=== PATIENT | female | born 1965 | race Caucasian/White ===

== ENCOUNTER 2018-04-18 00:56 | Outpatient (CLI) | payer BC, SELFPAY ==
[2018-04-18 07:54] LABS: Abs Immature Grans 0.02 k/cumm (0.0-0.09); Absolute Basophil Count 0.03 k/cumm (0.0-0.2); Absolute Eosinophil Count 0.28 k/cumm (0.0-0.7); Absolute Lymphocyte Count 1.66 k/cumm (1.2-3.4); Absolute Monocyte Count 0.48 k/cumm (0.11-0.7); Absolute Neutrophil Count 2.98 k/cumm (1.2-6.7); Basophils % 0.6; Eosinophils % 5.1; HCT 38.4 % (36.0-46.0); HGB 12.7 g/dL (12.0-15.5); Immature Grans % 0.4; Lymphocytes % 30.5; Mean Corp. HGB Concentration 33.1 g/dL (32.0-36.0); Mean Corpuscular Hemoglobin 32.2 pg (27.0-33.0); Mean Corpuscular Volume 97.5 fL (80-95); Mean Platelet Volume 9.8 fL (8.0-11.0); Monocytes % 8.8; Neutrophils % 54.6; Platelet Count 312 x1000/uL (130-400); RBC 3.94 m/cumm (4.00-5.20); RBC Distribution Width 12.8 % (11.7-14.6); White Blood Cell Count 5.45 k/cumm (4.4-10.8)
[2018-04-18 08:58] LABS: Anion Gap 9.1 mmol/L (3-11); BUN 17 mg/dL (7-18); CO2 25.9 mmol/L (21.0-32.0); CREATININE 0.69 mg/dL (0.55-1.02); Calcium 8.3 mg/dL (8.5-10.1); Chloride 106 mmol/L (98-107); Glucose 86 mg/dL (70-100); Potassium 4.4 mmol/L (3.5-5.1); Sodium 141 mmol/L (136-145)
== END 2018-04-18 01:16 ==
PROVIDERS: PCP Family Medicine; Visit Provider Obstetrics & Gynecology Gynecology
DX: N93.8 Other specified abnormal uterine and vaginal bleeding (principal); Z01.818 Encounter for other preprocedural examination; Z01.84 Encounter for antibody response examination
CPT/HCPCS: 36415; 80048; 86850; 86900; 86901; 85025

== ENCOUNTER 2018-04-20 06:14 | Day surgery (SDC) | payer BC, SELFPAY ==
[2018-04-20 06:28] VITALS: BP 113/80; PULSE 81; RESP 20; TEMP 37.3; O2SAT 97
[2018-04-20] MEDS: Lactated Ringers 1,000 ML 125 ML IV ×2 (07:05→08:43)
--- NOTE | 2018-04-20 08:15 | ENDOMET_PTH ---
PATIENT: Eloina Nieto LOC: [facility] U#:[id number] AGE/SX: 52/F ROOM: RE04/20/[address]: Carly Dasilva : 1965 BED: DIS: 04/20/2018 SPEC #: [id number] RECD: 04/20/18 12:35 STATUS: JARVIS REQ #: [id number] PEPE: 04/20/18 08:[address]: Carly Dasilva DEPT: Surgical Specimen RECD BY: Brooke Wheeler ENTERED: 04/20/18 12:36 SP TYPE: Endomet OTHR DR: Mera Howell Tissues: 1 - ENDOMETRIUM BX/ROSE Procedures: GROSS AND MICRO LEVEL 4 Comments: [id number]
[2018-04-20] MEDS: fentaNYL 100 MCG/2 ML VIAL 50 MCG IVP ×2 (09:17→10:18)
[2018-04-20 09:25] VITALS: BP 133/87; PULSE 87; RESP 22; TEMP 36.9; O2SAT 92
[2018-04-20] MEDS: oxyCODONE 5 mg/Acetaminophen 325 mg TAB PO (09:45)
--- NOTE | 2018-04-20 11:18 | ROE_ITS ---
REPORT OF OPERATIVE PROCEDURE DATE OF PROCEDURE April 20, 2018 PREOPERATIVE DIAGNOSIS Abnormal uterine bleeding. POSTOPERATIVE DIAGNOSIS Abnormal uterine bleeding. PROCEDURES Dilation and curettage. Hydrothermal endometrial ablation. SURGEON Carly Dasilva M.D. MACHINE I COREMAKER None. ANESTHESIA Monitored Anesthesia Care, by Sunita Lockett, DANNY FLUIDS 1100 cc of crystalloid. URINE OUTPUT The patient voided prior to the OR. ESTIMATED BLOOD LOSS None. DRAINS None. COMPLICATIONS None. SPECIMENS Endometrial curettings to pathology. DISPOSITION Awaken transported to the Recovery Area in stable condition. INDICATIONS A 52-year-old G1, P0 female with approximately one year of prolonged painful menses, not responsive to medical management. The patient was counseled regarding treatment options and the decision was made to proceed with an endometrial ablation. Her previous endometrial biopsy performed in September of 2017 , showed strips of inactive endometrium. FINDINGS AT THE TIME OF SURGERY The uterus sounded to 8 centimeters and the endometrial lining was thickened and a posterior myometrial fibroid was appreciated on hysteroscopic examination along the posterior uterine wall. It projected 2 to 3 mm into the endometrial cavity. Both tubal ostia were visualized. There was no evidence of anterior uterine fibroids or other distortions of the uterine cavity. DESCRIPTION OF PROCEDURE The patient was taken to the Operating Room, she was placed in the dorsal supine position and Monitored Anesthesia Care was administered without difficulty. She was then placed in the dorsal lithotomy position in [facility]. She was prepped and draped in the usual sterile fashion. A bivalved speculum was placed in the vagina. The paracervical block was performed using 2 cc of ropivacaine at the 4 and 8 o'clock vaginal cervical interface respectively. The anterior lip of the cervix was grasped with a single-tooth tenaculum. The uterus was sounded, sequentially dilated to a maximum of 16 Ashley and a small banjo curette was inserted into the uterus in all 4 quadrants of the uterine cavity were sequentially curetted with a moderate amount of tissue returned. The banjo curette was then removed and the HTA hysteroscope with uterine occlusion device was inserted under direct visualization into the uterine cavity. Cavity assessment was performed and the procedure was initiated with normal saline heated to a temperature of 91 degrees centigrade and circulated throughout the uterine cavity for 10 minutes. Care was taken to observe that there was no contact with the instillation device and the vaginal sánchez, and no leakage of the heated saline into the vagina. After the successful completion of the procedure, cooling of the circulating fluid was performed. The hysteroscope was then used to inspect the uterine cavity with excellent treatment effect noted. The hysteroscope was removed. The instruments were removed from the patient's vagina. The tenaculum site was noted to be hemostatic. She was placed in the dorsal supine position, awakened and transported to the Recovery Area in stable condition. All sponge, lap and needle counts were correct x2.
== END 2018-04-20 11:25 | disposition home or self-care (01) ==
PROVIDERS: PCP Family Medicine; Visit Provider Obstetrics & Gynecology Gynecology
PROC: (CPT 58563; principal; 2018-04-20 07:30)
PROC: (CPT 58353; 2018-04-20 07:30)
DX: N93.8 Other specified abnormal uterine and vaginal bleeding (principal); N84.0 Polyp of corpus uteri
CPT/HCPCS: 58563; 81025; 88305; J1885; J2250; J2405; J3010

== ENCOUNTER 2018-12-06 15:51 | Outpatient (REF) | payer BC, SELFPAY ==
[2018-12-06 21:34] LABS: ALT 30 U/L (12-78); AST 21 U/L (15-37); TSH 0.14 uIU/mL (0.358-3.74)
[2018-12-07 09:00] LABS: FREE T4 1.22 ng/dL (0.76-1.46)
== END 2018-12-06 16:11 ==
LOC: NCHCN 15:51
PROVIDERS: PCP Nurse Practitioner Family; Visit Provider Nurse Practitioner Family
DX: Z00.00 Encounter for general adult medical examination without abnormal findings (principal); E03.9 Hypothyroidism, unspecified
CPT/HCPCS: 84439; 84443; 84450; 84460

== ENCOUNTER 2018-12-13 01:41 | Outpatient (CLI) | payer BC, SELFPAY ==
--- NOTE | 2018-12-13 12:01 | DI.MAMMO_ITS ---
SYMPTOMS/DIAGNOSIS: SCREENING, Z12.31 MAMMOGRAM: Mammograms were interpreted according to the usual protocol including computer analysis with CAD system, tomosynthesis and C view imaging. The breasts are of moderate density with fairly symmetrical distribution of fibroglandular tissue. No dominant mass or clumped microcalcification is identified in either breast. Current examination is compared with previous examinations including September 2017 and there has been no gross interval change in appearance in comparison with the previous studies. CONCLUSION: No specific evidence of malignancy at this time. Routine screening examinations are suggested at yearly intervals in this age group according to the ACS/ACR guidelines. Category 1, breast density category B. MQSA ASSESSMENT OF FINDINGS: Negative. Category 1. Patient will receive a letter notifying them of these results. BI-RADS category B. There are scattered areas of fibroglandular density.
== END 2018-12-13 02:01 ==
PROVIDERS: PCP Nurse Practitioner Family; Visit Provider Obstetrics & Gynecology Gynecology
DX: Z12.31 Encounter for screening mammogram for malignant neoplasm of breast (principal)
CPT/HCPCS: 77063; 77067

== ENCOUNTER 2019-04-11 15:30 | Outpatient (CLI) | payer BC, SELFPAY ==
[2019-04-11 16:55] LABS: TSH (W/Ref FT4) 0.04 uIU/mL (0.36-3.74)
[2019-04-11 17:14] LABS: FREE T4 1.33 ng/dL (0.76-1.46)
== END 2019-04-11 15:50 ==
PROVIDERS: PCP Nurse Practitioner Family; Visit Provider Nurse Practitioner Family
DX: E03.9 Hypothyroidism, unspecified (principal)
CPT/HCPCS: 36415; 84439; 84443

== ENCOUNTER 2019-05-15 06:30 | Day surgery (SDC) | payer BC, SELFPAY ==
[2019-05-15] VITALS (7 sets, daily range): BP systolic 104–118; BP diastolic 62–86; PULSE 52–65; RESP 12–17; TEMP 36.1–36.6; O2SAT 96–100
[2019-05-15] MEDS: Lactated Ringers 1,000 ML 80 ML IV (07:45)
[2019-05-15] MEDS: fentaNYL 100 MCG/2 ML VIAL IVP ×3 (08:40→09:00)
--- NOTE | 2019-05-15 08:51 | W.PM.DSUDISC ---
Discharge Plan Disposition Patient Disposition: HOME Condition: Good Discharge Details Reason For Visit: Release of first dorsal extensor compartment L wri Attending Provider: Arslan Alcantar Primary Care Provider: Janice Larson Home Meds and New Rx's Prescriptions: New hydrocodone-acetaminophen 5-325 mg tablet 1 tab PO Q6H PRN (Reason: pain) Qty: 7 RF: 0 Continued levothyroxine 125 MCG tablet 88 mcg PO DAILY RF: 0 gabapentin 300 MG capsule 1 tab PO .QAM 90 Days RF: 0 hydroxyzine HCl 10 mg Tablet 50 mg PO QHS RF: 0 gabapentin 300 mg Capsule 600 mg PO HS RF: 0 Discharge Instructions Additional Instructions: Elevate L hand above heart level as much as possible overnite tonite. Wiggle fingers L hand 10 times/hour, when awake, to prevent swelling. Keep splint and dressings dry and intact for next 5 days. After 5 days, remove splint AND dressings and begin to move L wrist and thumb. May shower and get incision wet after you remove dressings. LEAVE INCISION UNCOVERED when it is dry and sealed. Use L hand as much as your discomfort allows. Follow up with in 2 weeks. Take ibuprofen 600 mg every 6 hours as needed for mild pain. Take hydrocodone, if needed, for breakthru pain. Referrals: Arslan Alcantar MD [ [facility]FF PHYSICIAN] - (f/u in 2 weeks.) Equipment/Supplies: Splint Activity:: Activity as Tolerated Diet:: As Tolerated Discharge Orders Discharge Orders: Discharge Order (Routine); Ordered 05/15/19 Ordered By: Arslan Alcantar DS: Diagnosis Discharge Diagnosis (1) Radial styloid tenosynovitis [de quervain]: Status: Acute
--- NOTE | 2019-05-16 17:20 | ROE_ITS ---
DATE OF PROCEDURE: May 15, 2019 PREOPERATIVE DIAGNOSIS: De Quervain's tendonitis of the first dorsal extensor compartment, left wris t. POSTOPERATIVE DIAGNOSIS: Same. PROCEDURE: Tendon sheath incision at radial styloid for De Quervain's tendonitis. Application of s hort-arm thumb spica splint. ANESTHESIA: General. SURGEON: Arslan Alcantar M.D. INDICATIONS: This is a 53-year-old white female with persistent tendonitis of the first dorsal exten sor compartment of the left wrist. This has not responded to conservative treatment. Release of the first dorsal extensor compartment was recommended to alleviate her pain on a permanent basis. The r isks and complications of the procedure were explained to the patient in detail preoperatively. PROCEDURE: The patient was taken to the operating room on 05/15/19. She was placed supine on the ope rating table and a general anesthetic was administered. A proximal tourniquet was applied to the lef t upper extremity and then the left hand, wrist and forearm were prepped and draped free in the usual sterile fashion. The left upper extremity was exsanguinated by elevation for two minutes and then t he tourniquet was inflated to 300 mmHg. A longitudinal incision was made directly over the first dorsal extensor compartment beginning at the distal tip of the radial styloid and extending proximally about three inches. The incision was palmer ied down to the subcu. Blunt-tipped Littler scissors were then used to mobilize the terminal branch of the superficial radial nerve away from the first dorsal extensor compartment. The first dorsal ex tensor compartment was then incised. There was abundant fluid in the first dorsal extensor compartme nt released by incising the sheath. There was noted to be two compartments within the first dorsal e xtensor compartment. One had a very large tendon, probably the abductor pollicis longus tendon slip , and the other compartment had two slips that were smaller, probably extensor pollicis brevis. The compartment was completely excised so that all three tendon slips rested within one compartment. The wound was irrigated with saline solution. The wound margins were infiltrated with 0.5% Marcaine wit h an epinephrine solution. The skin edges were approximated with interrupted #4-0 N[address]ures[address] St erile dressings were applied followed by a radial thumb spica splint held on with a 3-inch MISTY bandag e. The tourniquet was released; there was no breakthrough bleeding to the dressings. The patient to lerated the procedure well and was discharged to the recovery room after reversal of general anesthes ia. The patient was discharged home from the Day Surgery Unit when fully recovered from her general anest hesia. She was given instructions to elevate her left hand above heart level as much as possible ashanti ramírez. She is to keep her dressings and splint dry and intact for five days. After five da ys she is to remove her dressings and splint and start to move her left wrist and thumb. She may suzi wer and get her incision wet after five days. She is to leave the wound uncovered when it is dry and sealed. She may use her left hand as much as discomfort allows. She will take ibuprofen 600 mg p.o . t.i.d. for the next ten days for inflammation and pain. She was given a prescription for breakthro ugh pain of Hydrocodone with APAP 5/325, one tablet every six hours, if needed. She will follow-up kandi moy in two weeks.
== END 2019-05-15 10:15 | disposition home or self-care (01) ==
LOC: SUR 11:02
PROVIDERS: PCP Nurse Practitioner Family; Visit Provider Orthopaedic Surgery
PROC: (CPT 25000; principal; 2019-05-15 07:30)
DX: M65.4 Radial styloid tenosynovitis [de Quervain] (principal)
CPT/HCPCS: 25000; J1885; J3010

== ENCOUNTER 2019-06-13 15:49 | Outpatient (CLI) | payer BC, SELFPAY ==
[2019-06-13 17:21] LABS: TSH (W/Ref FT4) 0.36 uIU/mL (0.36-3.74)
== END 2019-06-13 16:09 ==
PROVIDERS: PCP Nurse Practitioner Family; Visit Provider Nurse Practitioner Family
DX: E03.9 Hypothyroidism, unspecified (principal)
CPT/HCPCS: 36415; 84443

== ENCOUNTER 2020-03-01 09:25 | Outpatient (REF) | payer BC, SELFPAY ==
[2020-03-01 23:25] LABS: ALT 24 U/L (14-59); AST 18 U/L (15-37); Calculated LDL 148 mg/dL (<100); Cholesterol 260 mg/dL (<200); Glucose 92 mg/dL (74-106); HDL Cholesterol 102 mg/dL (40-60); Triglyceride 53 mg/dL (<150)
== END 2020-03-01 09:45 ==
LOC: NCHCN 09:25
PROVIDERS: PCP Nurse Practitioner Family; Visit Provider Nurse Practitioner Family
DX: Z00.00 Encounter for general adult medical examination without abnormal findings (principal); Z13.220 Encounter for screening for lipoid disorders; Z13.1 Encounter for screening for diabetes mellitus
CPT/HCPCS: 80061; 82947; 84450; 84460

== ENCOUNTER 2020-03-20 00:58 | Outpatient (CLI) | payer BC, SELFPAY ==
--- NOTE | 2020-03-20 07:52 | DI.MAMMO_ITS ---
EXAM: MAMMO SCREENING CLINICAL HISTORY: SCREENING,Z12.31 2010 through 2019 FINDINGS: The breasts are composed of scattered fibroglandular densities, Breast Density category B. No suspicious masses or suspicious microcalcifications are seen. No skin thickening or abnormal axillary lymph nodes are seen. There has been no significant change from prior exams. IMPRESSION: BI-RADS Category 1, Negative mammogram Yearly screening mammography is recommended. Breast Density - Category B, scattered fibroglandular densities. A negative radiographic report should not delay biopsy if a dominant or clinically suspicious mass is present. Up to ten percent of cancers are not identified on mammography. A negative report may reinforce clinical impression. Adenosis and dense breasts may obscure an underlying neoplasm. False positive reports average 6 to 10%. Patient will receive a letter notifying them of these results.
== END 2020-03-20 01:18 ==
PROVIDERS: PCP Nurse Practitioner Family; Visit Provider Nurse Practitioner Family
DX: Z12.31 Encounter for screening mammogram for malignant neoplasm of breast (principal); R92.2 Inconclusive mammogram
CPT/HCPCS: 77063; 77067

== ENCOUNTER 2020-09-24 15:30 | Outpatient (REF) | payer BC, SELFPAY ==
--- NOTE | 2020-09-24 14:45 | PAPFT_PTH ---
PATIENT: Eloina Nieto LOC: [facility] U#:[id number] AGE/SX: 54/F ROOM: RE09/24/[address]: FIDEL Brian : 1965 BED: DIS: 09/24/2020 SPEC #: [id number] RECD: 09/24/20 17:49 STATUS: JARVIS REQ #: [id number] PEPE: 09/24/20 14:[address]: Gloria Sears DEPT: [facility] Cytology RECD BY: Brooke Wheeler ENTERED: 09/24/20 17:49 SP TYPE: PAPFT OTHR DR: Janice Larson Tissues: 1 - CX/ENDOCX FOR PAP SMEARS Procedures: PAP THIN PREP/UVM Screening HPV DNA PROBE Comments: [id number]
== END 2020-09-24 15:31 | disposition home or self-care (01) ==
LOC: LBN 15:30
PROVIDERS: PCP Nurse Practitioner Family; Visit Provider Nurse Practitioner Family
DX: Z12.4 Encounter for screening for malignant neoplasm of cervix (principal); Z11.51 Encounter for screening for human papillomavirus (HPV)
CPT/HCPCS: 88142; 87624

== ENCOUNTER 2020-10-18 16:41 | Outpatient (REF) | payer BC, SELFPAY ==
[2020-10-18 20:59] LABS: TSH (W/Ref FT4) 0.55 uIU/mL (0.36-3.74)
== END 2020-10-18 16:42 | disposition home or self-care (01) ==
LOC: NCHCN 16:41
PROVIDERS: PCP Nurse Practitioner Family; Visit Provider Nurse Practitioner Family
DX: E03.9 Hypothyroidism, unspecified (principal)
CPT/HCPCS: 84443

== ENCOUNTER 2021-04-07 01:50 | Outpatient (CLI) | payer BC, SELFPAY ==
--- NOTE | 2021-04-07 08:23 | DI.MAMMO_ITS ---
Exam(s) MAMMO SCREENING EXAM: MAMMO SCREENING CLINICAL HISTORY: screening,Z12.39. TECHNIQUE: Bilateral full field digital CC and MLO mammographic images were obtained with 3D tomosyn thesis and utilizing computer aided detection (CAD). COMPARISON: Prior mammograms dating back to 2011, the most recent being March 2020. FINDINGS: There has been no significant change in the appearance and distribution of the fibroglandular tissue. There are no new spiculated masses nor malignant appearing microcalcification groups. There is no significant architectural distortion nor skin thickening-retraction. IMPRESSION: No radiographic evidence of malignancy. BI-RADS Category 1 - Negative Breast Density - Category B - Scattered areas of fibroglandular density Breast density Category C or D implies that the patient has dense breast tissue. Dense breast tissue can make it harder to find cancer on a mammogram. Dense breast tissue is also associated with an incr eased risk of breast cancer. This information about the result of the mammogram report was provided to the patient to raise their awareness. Use this report when you speak with the patient about their risks for breast cancer, which includes their family history. At that time, you may recommend additional screening tests (Ultrasoun d or MRI) as these tests may add significant information. A negative radiographic report should not delay biopsy if a dominant or clinically suspicious mass is present. Up to ten percent of cancers are not identified on mammography. A negative report may reinforce clinical impression. Adenosis and dense breasts may obscure an underlying neoplasm. False positive reports average 6 to 10%. Patient will receive a letter notifying them of these results.
== END 2021-04-07 02:10 ==
PROVIDERS: PCP Nurse Practitioner Family; Visit Provider Nurse Practitioner Family
DX: Z12.31 Encounter for screening mammogram for malignant neoplasm of breast (principal)
CPT/HCPCS: 77063; 77067

== ENCOUNTER 2021-10-15 13:23 | Outpatient (REF) | payer BC, SELFPAY ==
[2021-10-15 15:47] LABS: HCT 39.1 % (36.0-46.0); HGB 12.8 g/dL (11.2-15.7); MCH 31.1 pg (27.0-33.0); MCHC 32.7 % (32.0-36.0); MCV 95.1 fL (80-95); MPV 10.2 fL (8.0-11.0); Platelet Count 246 10^3/uL (130-400); RBC 4.11 10^6/uL (3.93-5.22); RDW 11.8 % (11.7-14.6); WBC 4.47 10^3/uL (4.4-10.8)
[2021-10-15 16:29] LABS: ALT 18 U/L (14-59); AST 18 U/L (15-37); Albumin 4.1 g/dL (3.4-5.0); Alkaline Phosphatase 65 U/L (46-116); Anion Gap 7.9 mmol/L (3-11); BUN 19 mg/dL (7-18); Bilirubin, Total 0.5 mg/dL (0.2-1.0); CO2 29.1 mmol/L (21.0-32.0); CREATININE 0.6 mg/dL (0.55-1.02); Calcium 8.9 mg/dL (8.5-10.1); Calculated LDL 127 mg/dL (<100); Chloride 103 mmol/L (98-107); Cholesterol 247 mg/dL (<200); Glucose 78 mg/dL (74-106); HDL Cholesterol 112 mg/dL (40-60); Potassium 4.8 mmol/L (3.5-5.1); Sodium 140 mmol/L (136-145); TSH (W/Ref FT4) 4.62 uIU/mL (0.36-3.74); Total Protein 7.1 g/dL (6.4-8.2); Triglyceride 43 mg/dL (<150)
[2021-10-15 16:46] LABS: FREE T4 1.01 ng/dL (0.76-1.46)
== END 2021-10-15 13:24 | disposition home or self-care (01) ==
LOC: NCHCN 13:23
PROVIDERS: PCP Nurse Practitioner Family; Visit Provider Nurse Practitioner Family
DX: E03.9 Hypothyroidism, unspecified (principal); F41.8 Other specified anxiety disorders; E78.5 Hyperlipidemia, unspecified
CPT/HCPCS: 80053; 80061; 85027; 84439; 84443

== ENCOUNTER 2022-04-02 17:22 | Outpatient (REF) | payer BC, SELFPAY ==
[2022-04-02 20:08] LABS: TSH (W/Ref FT4) 7.48 uIU/mL (0.36-3.74)
[2022-04-02 20:38] LABS: FREE T4 1.04 ng/dL (0.76-1.46)
== END 2022-04-02 17:23 | disposition home or self-care (01) ==
LOC: NCHCN 17:22
PROVIDERS: PCP Nurse Practitioner Family; Visit Provider Nurse Practitioner Family
DX: E03.9 Hypothyroidism, unspecified (principal)
CPT/HCPCS: 84439; 84443

== ENCOUNTER → 2022-04-08 02:02 | Outpatient (CLI) | payer BC, SELFPAY ==
--- NOTE | 2022-04-08 08:45 | DI.MAMMO_ITS ---
Exam(s) MAMMO SCREENING EXAM: MAMMO SCREENING CLINICAL HISTORY: screening TECHNIQUE: Mammograms were interpreted according to the usual protocol including computer analysis w [employer] CAD system, tomosynthesis and C-view imaging. COMPARISON: FINDINGS: The breasts of moderate radiodensity with fairly symmetrical distribution of fibroglandular tissue.. No dominant mass or clumped microcalcification is identified in either breast. The current examinat ion is compared with previous examinations including March 2021 and there has been no gross inter rony change in appearance in comparison with the prior studies. IMPRESSION: No specific evidence of malignancy at this time. Routine screening examinations are suggested at yea rly intervals in this age group according to the ACS ACR guidelines. BI-RADS Category 1 - Negative Breast Density - Category B - Scattered areas of fibroglandular density
== END ==
PROVIDERS: PCP Nurse Practitioner Family; Visit Provider Nurse Practitioner Family
DX: Z12.31 Encounter for screening mammogram for malignant neoplasm of breast (principal)
CPT/HCPCS: 77063; 77067

== ENCOUNTER 2022-04-22 16:30 | Emergency (ER) | payer OTHER, SELFPAY ==
--- NOTE | 2022-04-22 16:30 | DI.RAD_ITS ---
Exam(s) XR ANKLE LT COMPLETE EXAM: XR ANKLE LT COMPLETE CLINICAL HISTORY: pain s/p fall TECHNIQUE: 2D digital imaging was performed of the left ankle. Three images were obtained. AP, lat eral and oblique views were obtained. COMPARISON: No exams were available for comparison FINDINGS: BONES: No acute fracture is present. No bony destructive lesion is seen. JOINTS:The ankle mortise is normally aligned. SOFT TISSUE: Normal. IMPRESSION: Unremarkable radiographs of the left ankle. DATA REPOSITORY: RADIATION DOSE DELIVERED:
--- NOTE | 2022-04-22 16:30 | DI.RAD_ITS ---
Exam(s) XR TIB/FIB LT EXAM: XR TIB/FIB LT CLINICAL HISTORY: pain s/p fall. TECHNIQUE: 2D digital imaging was performed of the left tibia and fibula. Images were obtained. A P and lateral views were obtained. COMPARISON: No exams were available for comparison FINDINGS: BONES: No acute fracture is present. No bony destructive lesion is seen. Visualized portion of knee a nd ankle joints are unremarkable. SOFT TISSUE: Normal. IMPRESSION: Unremarkable radiographs of the left tibia and fibula. DATA REPOSITORY: RADIATION DOSE DELIVERED:
[2022-04-22 16:31] VITALS: BP 131/78; PULSE 67; RESP 16; TEMP 37.1; O2SAT 99
--- NOTE | 2022-04-22 16:43 | W.ED.GENAD ---
Discharge Plan Disposition Patient Disposition: HOME Condition: Stable Discharge Details Clinical Impression: Sprain of ankle, left Primary Care Provider: Janice Larson ED Provider: Andrade Tran Home Meds and New Rx's Prescriptions: Continued trazodone 50 mg tablet 150 mg PO QHS Label Comments: 02/09/22- pt unsure of dose levothyroxine 125 MCG tablet 112 mcg PO DAILY Rx Instructions: Pt thinks she is on this dose Discharge Instructions Instructions: Ankle Sprain (ED) Additional Instructions: if pain continues in one week follow up with your primary care provider if you feel more ill, have severe worsening pain or new pain such as abdominal pain return to the emergency department Medical Decision Making 56 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 Denies head trauma or other injuries. She has no head pain, neck pain, back pain, chest or abdomen pain. She localizes the pain to the medial and lateral malleolus and has some mild swelling over the lateral malleolus. She has intact sensation and pulses in the foot, no tenderness over the metatarsals, does have full plantar and dorsiflexion at the ankle. No tenderness at the knee, has some mild anterior mid tibia tenderness without deformity. No pain in the hip with full rom. Suspect sprain of the ankle, will obtain xrays to evaluate for fracture. No findings to suggest achilles tendon injury or rupture. xrays unremarkable, she remains stable. Suspect ankle sprain, will place in short walking boot. Advised to f/u with pcp if pain continues in a week return precautions given Differential Diagnosis Differential Diagnosis: sprain, strain, fracture, contusion Imaging Data Radiologic Study: Attestation: I personally reviewed and interpreted this imaging study as follows: Imaging: X-Ray My impression: no acute fracture tib/fib xray Radiologic Study #2: Attestation: I personally reviewed and interpreted this imaging study as follows: Imaging: X-Ray My impression: no acute fracture ankle xray HPI General Date/Time Provider Initiated Documentation: 04/22/22 16:30. Limitations to Documentation: no limitations. Information obtained by: patient. History of Present Illness 56 year old F presents to the emergency department with the chief complaint of left ankle pain, described as moderate, Quality is described as aching, and is localized to the left. Patient reports no radiation. Patient started experiencing this hour(s) (1) and it has been constant. Rest improves symptom(s), Movement worsens symptoms . Patient notes no other symptoms.. Patient did receive the following treatments prior to arrival, none Related Data Home Medications Medication Instructions Recorded Confirmed levothyroxine 125 mcg tablet 112 mcg PO DAILY 02/14/13 04/22/22 trazodone 50 mg tablet 150 mg PO QHS 02/09/22 04/22/22 Allergies Allergy/AdvReac Type Severity Reaction Status Date / Time No Known Drug Allergies Allergy Verified 04/22/22 16:37 General Stated Complaint: Orthopedic PAOLA: 4 Review of Systems All systems reviewed & are unremarkable except as noted in HPI and below Constitutional Constitutional: Denies chills, Denies fever(s) and Denies weakness Cardiovascular Cardiovascular: Denies chest pain and Denies dyspnea Respiratory Respiratory: Denies dyspnea Gastrointestinal Gastrointestinal: Denies abdominal pain, Denies nausea and Denies vomiting Integumentary/Breasts Skin/Breast: Denies rash Neurologic Neurologic: Denies weakness [facility] All Active Problems (Updated 04/22/22 @ 17:21 by Andrade Tran MD) Sprain of ankle, left (Acute) Contact dermatitis and eczema due to plant (Acute) Radial styloid tenosynovitis [de quervain] (Acute 05/15/19) Uterine fibroid (Chronic) post uterine wall - Hypothyroid (Chronic) Hypothyroidism (Acute 02/14/13) Family History Mother Rheumatoid arthritis Heart disease Lung cancer Grandfather Colon cancer maternal Diabetes Grandmother Renal cancer maternal Father Glioblastoma Social History Smoking/Tobacco Use Status: Never Smoking risk assessment performed?: Yes Alcohol Intake: current Alcohol Intake frequency: a few times a month Alcohol type: beer and wine Details: monthly or less Drug use: Occasionally Substance use type: marijuana Details: edibles for insomnia Household members: significant other Number of Children: 0 current occupation: [employer] Sexually active: Yes Do you think of yourself as: straight/heterosexual Current gender identity: female Duration: 15-30 minutes/day Frequency: 5-6 times per week Seatbelt use: always Do you feel safe at home: Yes Do you feel safe in your relationship?: Yes History History 1 Para 0 Hx # Term Pregnancies 0 Multiple births Hx # Pregnancies Ectopic pregnancies AB induced Hx Number of Living Children AB spontaneous 1 Exam Const General: no acute distress Orientation: alert HENMT Head: normal to inspection Ears: external ears normal General nose exam: external nose normal Mouth: moist mucous membranes Eyes General: appearance normal, both eyes and all related structures Neck Neck: normal visual inspection Resp Effort & Inspection: normal respiratory effort and able to speak in complete sentences Cardio Rate: regular rate Skin General skin exam: no rashes or lesions noted Neuro General: patient alert and patient oriented x3 Extrem General: full ROM and capillary refill normal Psych Mental Status: mental status grossly normal Course Vital Signs Vital signs: Vital Signs Temperature 37.1 C 04/22/22 16:31 Pulse 67 04/22/22 16:31 Respiratory Rate 16 04/22/22 16:31 Blood Pressure 131/78 04/22/22 16:31 Pulse Oximetry 99 04/22/22 16:31 Temperature 37.1 C 04/22/22 16:31 Temperature Source Skin 04/22/22 16:31 Pulse 67 04/22/22 16:31 Respiratory Rate 16 04/22/22 16:31 Respiratory Effort 04/22/22 16:38 Blood Pressure 131/78 04/22/22 16:31 Blood Pressure Position Sitting 04/22/22 16:31 Pulse Oximetry 99 04/22/22 16:31 Oxygen Delivery Method Room Air 04/22/22 16:31 Oxygen Flow Rate 0 04/22/22 16:31 Pain Level 4 04/22/22 16:31 Comment 04/22/22 16:31 PAWSS Have you Been Recently Intoxicated or Drunk Within the Last 30 days?: No Have you Ever Experienced Previous Episodes of Alcohol Withdrawal?: No Have you ever Experienced Withdrawal Seizures?: No Have you ever Experienced Delirium Tremens(DT)s?: No Have you ever undergone Alcohol Rehabilitation Treatment (i.e, inpt ot outpatient treatment programs)?: No Have you ever Experienced Blackouts?: No Have you ever Combined Alcohol with other Downers within the last 90 days?: No Have you ever Combined Alcohol with any other Substance of Abuse during the last 90 days?: No Positive Blood Alcohol level on Presentation? [PCS.BAL]: No Evidence of Increased Autonomic Activity (i.e. HR>120, tremor, sweating, agitation, nausea)?: No Result: 0
[2022-04-22] MEDS: Ibuprofen 600 MG TAB PO (17:16)
--- NOTE | 2022-04-22 17:42 | DI.VRAD_ITS ---
PROCEDURE INFORMATION: Exam: XR Left Ankle Exam date and time: 04/22/2022 5:08 PM Age: 56 years old Clinical indication: Injury or trauma; Fall; Blunt trauma; Ankle; Left TECHNIQUE: Imaging protocol: Radiologic exam of the Left ankle. Views: 3 or more views. COMPARISON: CR XR TIB/FIB LT 04/22/2022 5:05 PM FINDINGS: Bones/joints: Normal. Soft tissues: Normal. IMPRESSION: No acute findings. Dictated and Authenticated by: Magno Shabazz MD. Ordering:MARILYN Zafar MD
--- NOTE | 2022-04-22 17:43 | DI.VRAD_ITS ---
PROCEDURE INFORMATION: Exam: XR Left Tibia and Fibula Exam date and time: 04/22/2022 5:05 PM Age: 56 years old Clinical indication: Injury or trauma; Fall; Blunt trauma; Lower leg; Left TECHNIQUE: Imaging protocol: Radiologic exam of the Left tibia and fibula. Views: 2 views. COMPARISON: No relevant prior studies available. FINDINGS: Bones/joints: Normal. Soft tissues: Normal. IMPRESSION: No acute findings. Dictated and Authenticated by: Magno Shabazz MD. Ordering:MARILYN Zafar MD
== END 2022-04-22 18:16 | disposition home or self-care (01) ==
PROVIDERS: Emergency Provider Emergency Medicine; PCP Nurse Practitioner Family
DX: S93.402A Sprain of unspecified ligament of left ankle, initial encounter (principal); X50.9XXA Other and unspecified overexertion or strenuous movements or postures, initial encounter; Y93.39 Activity, other involving climbing, rappelling and jumping off
CPT/HCPCS: 99284; 73590; 73610; 99282

== ENCOUNTER 2022-06-02 18:28 | Outpatient (REF) | payer BC, SELFPAY ==
[2022-06-02 15:35] LABS: TSH (W/Ref FT4) 0.25 uIU/mL (0.36-3.74)
[2022-06-02 16:32] LABS: FREE T4 1.52 ng/dL (0.76-1.46)
== END 2022-06-02 18:29 | disposition home or self-care (01) ==
LOC: NCHCN 18:28
PROVIDERS: PCP Nurse Practitioner Family; Visit Provider Nurse Practitioner Family
DX: E03.9 Hypothyroidism, unspecified (principal)
CPT/HCPCS: 84439; 84443

== ENCOUNTER → 2022-06-09 13:00 | Outpatient (CLI) | payer BC, SELFPAY ==
--- NOTE | 2022-06-09 | DI.RAD_ITS ---
Exam(s) XR SHOULDER LT COMPLETE 2+V EXAM: XR SHOULDER LT COMPLETE 2+V CLINICAL HISTORY: LT SHOULDER PAIN, M25.512. TECHNIQUE: 2D digital imaging was performed of the left shoulder. Five images were obtained. AP, G rashey, Y-view and axillary views were obtained. COMPARISON: CR LEFT SHOULDER COMPLETE from 11/23/2013 FINDINGS: BONES: No acute fracture is present. No bony destructive lesion is seen. JOINTS: No dislocation present. There are mild degenerative changes of the acromioclavicular joint. SOFT TISSUE: Soft tissue calcifications are seen adjacent to the greater tuberosity suggestive of hira cific tendinitis. 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 Calcific tendinitis. DATA REPOSITORY: RADIATION DOSE DELIVERED:
== END ==
PROVIDERS: PCP Nurse Practitioner Family; Visit Provider Family Medicine
DX: M19.011 Primary osteoarthritis, right shoulder (principal)
CPT/HCPCS: 73030

== ENCOUNTER 2022-06-09 13:32 | Outpatient (REF) | payer BC, SELFPAY ==
[2022-06-09 14:48] LABS: ESR 1 mm/hr (0-30)
[2022-06-10 09:50] LABS: Lyme Ab w Rflx to Lyme Confirm Negative (Negative)
[2022-06-11 18:18] LABS: Anaplasma phagocytophilum Negative (Negative); B. miyamotoi PCR Negative (Negative); Babesia divergens/MO-1 Negative (Negative); Babesia duncani Negative (Negative); Babesia microti Negative (Negative); Ehrlichia chaffeensis Negative (Negative); Ehrlichia ewingii/canis Negative (Negative); Ehrlichia muris eauclairensis Negative (Negative)
== END 2022-06-09 13:33 | disposition home or self-care (01) ==
LOC: NCHCN 13:32
PROVIDERS: PCP Nurse Practitioner Family; Visit Provider Family Medicine
DX: M25.512 Pain in left shoulder (principal); R52 Pain, unspecified
CPT/HCPCS: 85652; 87798; 86618

== ENCOUNTER 2022-11-04 13:17 | Outpatient (REF) | payer BC, SELFPAY ==
[2022-11-04 21:20] LABS: HCT 36.7 % (36.0-46.0); MCH 30.6 pg (27.0-33.0); MCHC 32.7 % (32.0-36.0); MCV 94 fL (80-95); MPV 10.2 fL (8.0-11.0); Platelet Count 263 10^3/uL (130-400); RBC 3.92 10^6/uL (3.93-5.22); RDW 13.2 % (11.7-14.6); RDW-SD 45.3 fL
[2022-11-04 21:59] LABS: ALT 20 U/L (14-59); AST 18 U/L (15-37); Alkaline Phosphatase 72 U/L (46-116); Anion Gap 6.8 mmol/L (3-11); BUN 13 mg/dL (7-18); Bilirubin, Total 0.4 mg/dL (0.2-1.0); CO2 29.2 mmol/L (21.0-32.0); CREATININE 0.7 mg/dL (0.55-1.02); Calcium 8.9 mg/dL (8.5-10.1); Calculated LDL 117 mg/dL (<100); Chloride 104 mmol/L (98-107); Cholesterol 243 mg/dL (<200); Estimated GFR 102.71 (mL/min/1.73m2); Glucose 90 mg/dL (74-106); HDL Cholesterol 121 mg/dL (40-60); Potassium 3.9 mmol/L (3.5-5.1); Sodium 140 mmol/L (136-145); TSH (W/Ref FT4) 4.84 uIU/mL (0.36-3.74); Total Protein 7.2 g/dL (6.4-8.2); Triglyceride 26 mg/dL (<150)
[2022-11-04 22:24] LABS: FREE T4 1.05 ng/dL (0.76-1.46)
== END 2022-11-04 13:18 | disposition home or self-care (01) ==
LOC: NCHCN 13:17
PROVIDERS: PCP Nurse Practitioner Family; Visit Provider Nurse Practitioner Family
DX: F41.8 Other specified anxiety disorders (principal); E78.5 Hyperlipidemia, unspecified; G47.00 Insomnia, unspecified
CPT/HCPCS: 80053; 80061; 85027; 84439; 84443

== ENCOUNTER 2023-05-05 18:49 | Outpatient (REF) | payer BC, SELFPAY ==
[2023-05-05 16:31] LABS: TSH (W/Ref FT4) 27.62 uIU/mL (0.36-3.74)
[2023-05-05 18:03] LABS: FREE T4 0.94 ng/dL (0.76-1.46)
== END 2023-05-05 18:50 | disposition home or self-care (01) ==
LOC: NCHCN 18:49
PROVIDERS: PCP Nurse Practitioner Family; Visit Provider Nurse Practitioner Family
DX: E03.9 Hypothyroidism, unspecified (principal)
CPT/HCPCS: 84439; 84443

== ENCOUNTER → 2023-05-31 02:29 | Outpatient (CLI) | payer BC, SELFPAY ==
--- NOTE | 2023-05-31 | DI.MAMMO_ITS ---
Exam(s) MAMMO SCREENING EXAM: MAMMO SCREENING CLINICAL HISTORY: SCREENING, Z12.39 TECHNIQUE: Mammograms were interpreted according to the usual protocol including computer analysis w [employer] CAD system, tomosynthesis and C-view imaging. COMPARISON: 2013 through 2021 FINDINGS: The breasts are composed of scattered fibroglandular densities, Breast Density category B. No suspicious masses or suspicious microcalcifications are seen. No skin thickening or abnormal axillary lymph nodes are seen. There has been no significant change from prior exams. IMPRESSION: BI-RADS Category 1, Negative mammogram Yearly screening mammography is recommended. Breast Density - Category B, scattered fibroglandular densities. A negative radiographic report should not delay biopsy if a dominant or clinically suspicious mass is present. Up to ten percent of cancers are not identified on mammography. A negative report may reinforce clinical impression. Adenosis and dense breasts may obscure an underlying neoplasm. False positive reports average 6 to 10%. Patient will receive a letter notifying them of these results.
== END ==
PROVIDERS: PCP Nurse Practitioner Family; Visit Provider Nurse Practitioner Family
DX: Z12.31 Encounter for screening mammogram for malignant neoplasm of breast (principal); R92.323 Mammographic fibroglandular density, bilateral breasts
CPT/HCPCS: 77063; 77067

== ENCOUNTER 2023-08-17 11:18 | Outpatient (REF) | payer BC, SELFPAY ==
[2023-08-17 16:11] LABS: TSH 4.67 uIU/mL (0.36-3.74)
[2023-08-19 09:30] LABS: FREE T4 1.02 ng/dL (0.76-1.46)
== END 2023-08-17 11:19 | disposition home or self-care (01) ==
LOC: NCHCN 11:18
PROVIDERS: PCP Nurse Practitioner Family; Visit Provider Nurse Practitioner Family
DX: E03.9 Hypothyroidism, unspecified (principal)
CPT/HCPCS: 84439; 84443

== ENCOUNTER 2023-09-29 21:54 | Outpatient (REF) | payer BC, SELFPAY ==
[2023-09-29 21:19] LABS: HCT 33.6 % (36.0-46.0); HGB 10.8 g/dL (11.2-15.7); MCH 30.4 pg (27.0-33.0); MCHC 32.1 % (32.0-36.0); MCV 95 fL (80-95); MPV 9.7 fL (8.0-11.0); Platelet Count 281 10^3/uL (130-400); RBC 3.55 10^6/uL (3.93-5.22); RDW 13.6 % (11.7-14.6); WBC 5.65 10^3/uL (4.4-10.8)
[2023-09-29 21:20] LABS: ESR 2 mm/hr (0-30)
[2023-09-29 21:44] LABS: ALT 18 U/L (14-59); AST 16 U/L (15-37); Albumin 3.8 g/dL (3.4-5.0); Alkaline Phosphatase 73 U/L (46-116); Anion Gap 9.2 mmol/L (3-11); BUN 14 mg/dL (7-18); Bilirubin, Total 0.3 mg/dL (0.2-1.0); CO2 28.8 mmol/L (21.0-32.0); CREATININE 0.7 mg/dL (0.55-1.02); Calcium 9.1 mg/dL (8.5-10.1); Chloride 107 mmol/L (98-107); Estimated GFR 102.07 (mL/min/1.73m2); Glucose 127 mg/dL (74-106); Potassium 4.6 mmol/L (3.5-5.1); Sodium 145 mmol/L (136-145); Total Protein 6.8 g/dL (6.4-8.2)
[2023-09-29 22:04] LABS: FREE T4 0.86 ng/dL (0.76-1.46)
[2023-09-29 22:05] LABS: C-Reactive Protein < 0.50 mg/dL (<or=0.5)
[2023-10-01 13:37] LABS: Iron 28 ug/dL (50-170); Total Iron Binding Capacity 339 ug/dL (250-450); Transferrin Sat 8 % (15-50)
[2023-10-01 13:50] LABS: Ferritin 12 ng/mL (8-252)
== END 2023-09-29 21:55 | disposition home or self-care (01) ==
LOC: NCHCN 21:54
PROVIDERS: PCP Nurse Practitioner Family; Visit Provider Nurse Practitioner Family
DX: E03.9 Hypothyroidism, unspecified (principal); R51.9 Headache, unspecified
CPT/HCPCS: 80053; 85027; 85652; 82728; 83540; 83550; 84439; 84443; 86140

== ENCOUNTER 2023-11-15 16:35 | Outpatient (REF) | payer BC, SELFPAY ==
[2023-11-15 21:51] LABS: Ferritin 31 ng/mL (8-252)
[2023-11-15 21:54] LABS: Iron 75 ug/dL (50-170); Total Iron Binding Capacity 287 ug/dL (250-450); Transferrin Sat 26 % (15-50)
== END 2023-11-15 16:36 | disposition home or self-care (01) ==
LOC: NCHCN 16:35
PROVIDERS: PCP Nurse Practitioner Family; Visit Provider Nurse Practitioner Family
DX: D64.9 Anemia, unspecified (principal)
CPT/HCPCS: 82728; 83540; 83550

== ENCOUNTER 2023-12-16 14:47 | Outpatient (CLI) | payer BC, SELFPAY ==
[2023-12-16 11:37] LABS: Abs Immature Grans 0.01 10^3/uL (0.0-0.06); Absolute Basophil Count 0.04 10^3/uL (0.0-0.2); Absolute Eosinophil Count 0.07 10^3/uL (0.0-0.7); Absolute Lymphocyte Count 1.66 10^3/uL (1.2-3.4); Absolute Monocyte Count 0.46 10^3/uL (0.1-0.8); Absolute Neutrophil Count 2.64 10^3/uL (1.2-6.7); Basophils % 0.8 %; Eosinophils % 1.4 %; HCT 36.4 % (36.0-46.0); HGB 12.3 g/dL (11.2-15.7); Immature Grans % 0.2 %; MCH 31.9 pg (27.0-33.0); MCHC 33.8 % (32.0-36.0); MCV 95 fL (80-95); MPV 9.6 fL (8.0-11.0); Monocytes % 9.4 %; Neutrophils % 54.2 %; Platelet Count 253 10^3/uL (130-400); RBC 3.85 10^6/uL (3.93-5.22); RDW 12.9 % (11.7-14.6); RDW-SD 45.1 fL; WBC 4.88 10^3/uL (4.4-10.8)
[2023-12-16 12:48] LABS: ALT 19 U/L (14-59); AST 14 U/L (15-37); Albumin 3.8 g/dL (3.4-5.0); Alkaline Phosphatase 76 U/L (46-116); Anion Gap 7.6 mmol/L (3-11); BUN 19 mg/dL (7-18); Bilirubin, Total 0.3 mg/dL (0.2-1.0); CO2 29.4 mmol/L (21.0-32.0); CREATININE 0.8 mg/dL (0.55-1.02); Calcium 9.2 mg/dL (8.5-10.1); Chloride 107 mmol/L (98-107); Estimated GFR 86.42 (mL/min/1.73m2); Ferritin 38 ng/mL (8-252); Folate 18.8 ng/mL (8.6-20.0); Glucose 105 mg/dL (74-106); Sodium 144 mmol/L (136-145); TSH (W/Ref FT4) 8.81 uIU/mL (0.36-3.74); Total Protein 7.3 g/dL (6.4-8.2); Vitamin B12 298 pg/mL (193-986)
[2023-12-16 13:10] LABS: FREE T4 1.05 ng/dL (0.76-1.46)
== END 2023-12-16 14:48 | disposition home or self-care (01) ==
LOC: LBO 14:47
PROVIDERS: PCP Nurse Practitioner Family; Visit Provider Surgery
DX: E03.9 Hypothyroidism, unspecified (principal); Z98.890 Other specified postprocedural states; D25.9 Leiomyoma of uterus, unspecified; R19.5 Other fecal abnormalities; D50.0 Iron deficiency anemia secondary to blood loss (chronic); F41.9 Anxiety disorder, unspecified
CPT/HCPCS: 80053; 82607; 82728; 82746; 84439; 84443; 85025

== ENCOUNTER 2024-01-05 07:25 | Day surgery (SDC) | payer BC, SELFPAY ==
--- NOTE | 2024-01-04 16:21 | PDOC.DSDIS_ITS ---
Date of service: 01/05/24 Time of Service: 09:42 Discharge Plan Disposition Patient Disposition: Home Condition: Good Discharge Details Reason For Visit: EGD and colonoscopy Attending Provider: Connor Santizo Primary Care Provider: Janice Larson Home Meds and New Rx's Prescriptions: New sucralfate 1 gram tablet 1 g PO BID Qty: 60 0RF omeprazole 40 mg capsule,delayed release(DR/EC) 40 mg PO DAILY Qty: 30 3RF Continued cetirizine [Zyrtec] 10 mg tablet 10 mg PO DAILY PRN trazodone 50 mg tablet 100 mg PO QHS Patient Comments: 02/09/22- pt unsure of dose levothyroxine 125 mcg tablet 125 mcg PO DAILY Rx Instructions: Pt thinks she is on this dose Discontinued polyethylene glycol 3350 17 gram/dose powder 238 g PO ONCE Qty: 238 0RF Rx Instructions: take per colonoscopy instructions bisacodyl [Dulcolax (bisacodyl)] 5 mg tablet,delayed release (DR/EC) 5 mg PO ONCE Qty: 4 0RF Rx Instructions: take per colonoscopy instructions Discharge Instructions Instructions: Peptic ulcers Additional Instructions: Eloian, we were able to complete your endoscopies today without any difficulty. There is an ulcer in the last part of your stomach before it empties into your small intestine called the antrum. Most common cause of antral ulcers is nonsteroidal anti-inflammatory use (things like ibuprofen and aspirin). In addition to stopping nonsteroidal anti-inflammatory use, the mainstays of treatment for peptic ulcer disease include the use of proton pump inhibitor medications. I placed a prescription for you to start some omeprazole, which is a medication in this family. I also put a prescription in for some sucralfate, which can often times help with some of the symptoms of gastric ulcers. I did do multiple biopsies to rule out any other problems, I also biopsied other parts of the stomach to rule out H. pylori, which is what we talked about beforehand. He had a single polyp on your colonoscopy. I removed this today, and will be sent off for testing. Once we know the nature of the polyp, we can be in touch regarding recommendations for the timing of your next colonoscopy. It usually takes a week or 2 for all of the biopsy results to come back. I have asked the office to schedule a follow-up appointment for you with Dr. May, and you can address the venofir infusions with her at that time. 1. If tolerated, consume a soft, low fiber diet for 1-2 days. 2[address] Do not drive, drink alcohol, operate machinery, make critical decisions, or do activities that require coordination or balance for 24 hours. 3. Because air was put into your colon during the procedure, expelling air from your rectum (passing gas or farting) is normal. 4. You may not have a bowel movement for 1-3 days because of the colonoscopy p rep. This is normal. 5. You may experience a sore throat for 24 to 48 hours. You may use throat lozenges or gargle with warm salt water to relieve the discomfort. 6. Because air was put into your stomach during the procedure, you may experience some belching. 7. Go directly to the emergency room if you notice any of the following: Develop chills (warm to touch), or if you have a thermometer and your temperature is above 101 Difficulty breathing or difficultly swallowing Persistent vomiting Severe abdominal pain, other than gas cramps Severe chest pain Black, tarry stools Any bleeding ? exceeding one tablespoon 8. Call your physician if the site where your intravenous was started becomes red, swollen, painful, and warm to touch. 9. Your physician has reviewed your pre-procedure medications. Please continue to take those medications as previously ordered. You will be given specific information/education regarding any changes to your medications before leaving. Stand Alone Forms: Anesthesia Discharge InstInna Vance (DSU) Referrals: Celi May DO [OSTEOPATHIC DOCTOR] - Activity:: Activity as Tolerated Diet:: As Tolerated Discharge Orders Discharge Orders: Discharge Order (Routine); Ordered 01/04/24 Ordered By: Connor Santizo DS: Diagnosis Discharge Diagnosis (1) Peptic ulcer disease: Status: Chronic Asessment and Plan: Start proton pump inpatient therapy and sucralfate; follow-up with Dr. May
--- NOTE | 2024-01-04 16:23 | W.PM.ENDDOP ---
Date of service: 01/05/24 Time of Service: 09:48 Endoscopy Report DATE OF PROCEDURE: 01/05/24 PRE-OP DIAGNOSIS: Iron deficiency anemia POST-OP DIAGNOSIS: other (Gastric antral ulcer) PROCEDURE: EGD with biopsies, and colonoscopy with polypectomy SURGEON: Connor Santizo ANESTHESIA TYPE: General:No Airway ESTIMATED BLOOD LOSS: 10 PATHOLOGY: other (Stomach ulcer, random biopsies of gastric antrum and body; 0.25 centimeter colon polyp at 30 cm) COMPLICATIONS: None DISPOSITION: same day INDICATIONS: Jacque is a 58-year-old woman with iron deficiency anemia. She is guaiac positive stools and upper GI symptoms. PREP: Miralax/Dulcolax PROCEDURE START TIME: 09:15 PROCEDURE END TIME: 09:35 COLONOSCOPY RETRACTION TIME: 6 FINDINGS: Prepyloric gastric antral ulcer; 0.25 cm colon polyp at 30 cm PROCEDURE DESCRIPTION: After the initiation of anesthesia, and with the assistance of a bite block, I advanced a standard gastroscope through the mouth past the hypopharynx and into the esophagus.? Under the direct vision of the scope, I advanced down the esophagus into the stomach.? Once I entered the stomach, I performed a brief inspection, followed by retroflexion towards the gastric cardia.? I did not see any signs of any hiatal hernia.? After that, I gently advanced the scope around the incisura angularis and examined the pylorus.? There is a gastric ulcer in the distal antrum, immediately proximal to the pylorus. I would estimate it to be about 1.5 cm in its greatest dimension. There is no stigmata of recent bleeding. There are some central eschar. Narrowband imaging was used to assist with analysis. Features appeared consistent with a simple gastric ulcer. I was able to navigate the scope around this, and passed across the pylorus into the duodenum. Mucosa was pink and normal-appearing. I was able to visualize bile draining into the duodenum through the ampulla Vater. Next, I began retracting the endoscope.? I brought the camera back into the antrum, and performed biopsies of the stomach ulcer. This was done with cold forceps with minimal bleeding. I also perform random biopsies of the gastric antrum and gastric body to rule out Helicobacter pylori. I then brought the camera back up to the GE junction. Again, narrowband imaging was used. I did not see any signs of Chávez's esophagus. Z-line was regular and the GE junction measured 37 cm from the incisors. Advance the camera back into the stomach and emptied it. I then brought the camera out along the length of the esophagus examining it once again. I did not see any other abnormalities. We then rolled Eloina into the left lateral decubitus position. Care was taken to pad and support her appropriately. I began by performing an external anorectal exam.? Perineum and skin were normal, as was the anal verge.? There was no evidence of external hemorrhoids.? Next, I performed a digital rectal exam.? I did not appreciate any abnormal findings.? Next, I advanced a colonoscope into the rectal vault.? I performed retroflexion.? This was normal.? Using insufflation, I then advanced the colonoscope beyond the rectal folds and into the sigmoid colon before advancing towards the cecum.? The scope was noted to be in the cecum by identification of the ileocecal valve and appendiceal orifice.? I then began withdrawing the colonoscope using repeated irrigation as necessary for full evaluation of the colonic mucosa. ?Around 30 cm from the anal verge I identified a 0.25 cm polyp. ?It appeared flat in character. ?I was able to remove this with a cold forcep polypectomy. ?I examined the site, and there was minimal bleeding. ?Once this was completed, I continued to withdraw the scope and examine the remainder of the colonic mucosa. Once the scope was withdrawn to the level of the rectum, great care was taken to examine portions of the rectal folds.? Finally, the scope was withdrawn and the patient was brought to the same-day surgery recovery unit as the anesthetic wore off. ?The findings and instructions were shared with the patient prior to discharge.
--- NOTE | 2024-01-05 | DI.RAD_ITS ---
Exam(s) XR PELVIS AP EXAM: XR PELVIS AP CLINICAL HISTORY: Right hip pain. TECHNIQUE: 2D digital imaging was performed. Single AP view. COMPARISON: No exams were available for comparison FINDINGS: BONES: No acute fracture is present. No bony destructive lesion is seen. JOINTS: No dislocation present. Severe narrowing of the right superior hip joint space. Spurring fro m the acetabulum and femoral head. Mild narrowing of the left hip joint space and minimal periarticu lar spurring. Mild degenerative changes of the SI joints. SOFT TISSUE: Normal. IMPRESSION: Severe degenerative changes of the right hip. DATA REPOSITORY: RADIATION DOSE DELIVERED:
[2024-01-05 07:53] VITALS: BP 116/71; PULSE 57; RESP 16; TEMP 36.7; O2SAT 97
[2024-01-05] MEDS: Lactated Ringers 1,000 ML 80 ML IV (08:22)
[2024-01-05 08:51] VITALS: BMI 28.9
--- NOTE | 2024-01-05 08:51 | ANES.PREOP_ITS ---
General Info Date of Service Date Performed: 01/05/24 Height: 5 ft 2 in Weight: 71.7 kg Body Mass Index (BMI): 28.9 Surgical Procedure: Operation Date: 01/05/24 09:05 Proposed Procedure Side Surgeon p Colonoscopy/Gastroscopy Connor Santizo MD Actual Procedure Side Surgeon p Colonoscopy/Gastroscopy Not Applicable Connor Santizo MD Pre-Op Diagnosis Post-Op Diagnosis EGD and colonoscopy Meds Allergies and Home Medications Allergies Allergy/AdvReac Type Severity Reaction Status Date / Time No Known Drug Allergies Allergy none Verified 01/05/24 07:47 Home Medication Medication Instructions Recorded cetirizine 10 mg tablet (Zyrtec) 10 mg PO DAILY PRN 11/26/23 trazodone 50 mg tablet 100 mg PO QHS 11/26/23 levothyroxine 125 mcg tablet 125 mcg PO DAILY 12/16/23 Current Visit Medications: Current Medications Generic Name Dose Route Start Last Admin Trade Name Freq PRN Reason Stop Dose Admin Hyoscyamine Sulfate 0.125 mg 01/04/24 16:24 Hyoscyamine 0.125 Mg Sl/Oral/Chew SL 02/03/24 16:23 DIRECTED PRN Ringer's Solution 1,000 mls @ 80 mls/hr 01/05/24 06:00 01/05/24 08:22 IV 02/03/24 23:59 80 mls/hr INFUSION JAIME Administration IV Miscellaneous Supplies 1 each 01/05/24 06:00 Iv Access IV 02/03/24 23:59 DIRECTED JAIME Ondansetron HCl 4 mg 01/04/24 16:24 Ondansetron 4 Mg/2 Ml Vial IVP 02/03/24 16:23 Q4H PRN PRN Nausea / Vomiting Sodium Chloride 0 ml 01/05/24 06:00 Normal Saline Flush 10 Ml Syr IV 02/03/24 23:59 PRN PRN Sodium Chloride 0 ml 01/05/24 06:00 Normal Saline 10 Ml Vial IJ 02/03/24 23:59 DIRECTED PRN Sterile Water 0 ml 01/05/24 06:00 Water,Injection,Sterile 10 Ml Vial IJ 02/03/24 23:59 DIRECTED PRN PFSH Active Problems Active Problems: Problem Status Onset Code Iron deficiency anemia due to chronic blood loss D50.0 Occult blood in stools R19.5 Contact dermatitis and eczema due to plant L24.7 Radial styloid tenosynovitis [de quervain] 05/15/19 M65.4 Uterine fibroid D25.9 Status post endometrial ablation Z98.890 Hypothyroid E03.9 Abnormal uterine bleeding (AUB) N93.9 Hypothyroidism 02/14/13 E03.9 Medical History Medical History Anxiety Insomnia Degeneration of cervical intervertebral disc Strabismus Hyperlipidemia Tobacco Smoking/Tobacco Use Status: Never Alcohol Alcohol Intake: current Alcohol intake frequency: a few times a month Alcohol type: beer and wine Details: monthly or less Substance Use Substance use: Daily Substance use type: marijuana Details: cannabis gummies for sleep Prental History History 1 Para 0 Hx # Term Pregnancies 0 Multiple births Hx # Pregnancies Ectopic pregnancies AB induced Hx Number of Living Children AB spontaneous 1 Vital Signs and Lab Results Vital Signs Most Recent Vital Signs in EMR: Most Recent Vital Signs Temp Pulse Resp BP Pulse Ox 36.7 C 57 L 16 116/71 97 01/05/24 07:53 01/05/24 07:53 01/05/24 07:53 01/05/24 07:53 01/05/24 07:53 Lab Results Blood Type / Crossmatch: No Data to Display Complete Blood Count: White Blood Count 4.88 10^3/uL (4.4-10.8) 12/16/23 11:26 Red Blood Count 3.85 10^6/uL (3.93-5.22) L 12/16/23 11:26 Hemoglobin 12.3 g/dL (11.2-15.7) 12/16/23 11:26 Hematocrit 36.4 % (36.0-46.0) 12/16/23 11:26 Platelet Count 253 10^3/uL (130-400) 12/16/23 11:26 Complete Metabolic Panel: Sodium 144 mmol/L (136-145) 12/16/23 11:26 Potassium 4.0 mmol/L (3.5-5.1) 12/16/23 11:26 Chloride 107 mmol/L (98-107) 12/16/23 11:26 Carbon Dioxide 29.4 mmol/L (21.0-32.0) 12/16/23 11:26 BUN 19 mg/dL (7-18) H 12/16/23 11:26 Creatinine 0.8 mg/dL (0.55-1.02) 12/16/23 11:26 Est GFR (CKD-EPI 2020) 86.42 (mL/min/1.73m2) 12/16/23 11:26 Calcium 9.2 mg/dL (8.5-10.1) 12/16/23 11:26 Albumin 3.8 g/dL (3.4-5.0) 12/16/23 11:26 Glucose 105 mg/dL (74-106) 12/16/23 11:26 Liver Function Panel: 2 Alanine Aminotransferase (ALT/SGPT) 19 U/L (14-59) 12/16/23 11: 26 Aspartate Amino Transf (AST/SGOT) 14 U/L (15-37) L 12/16/23 11: 26 Coagulation Panel: No Data to Display Cardiac Panel: No Data to Display Arterial Blood Gas: No Data to Display Venous Blood Gas: No Data to Display Pancreas Panel: No Data to Display Thyroid Panel: Thyroid Stimulating Hormone (TSH) 8.81 uIU/mL (0.36-3.74) H 12/16/23 11:26 Infectious Disease: No Data to Display Blood Cultures: No Data to Display Toxicology Panel: No Data to Display Anesthesia Assessment and Plan Anesthesia History Personal History: No History of Anesthesia Complications Family History: No Family History of Anesthesia Complications Exercise Tolerance Exercise Tolerance: Metabolic Equivalents>4 Pertinent Negatives Pertinent Negatives: No Symptoms of GERD Cardiac & Pulmonary Exam Cardiac Exam: Normal S1/S2 Heart Sounds Pulmonary Exam: Clear Bilateral Breath Sounds Implantable Cardiac Device Does patient have a Pacemaker or an ICD?: No Airway Exam Known Difficult Airway: No Mallampati Class: 2 Mouth Opening: Normal (> 3cm) Thyromental Distance: Greater than 3 cm Neck Range of Motion: Full ROM Neck Circumference: Normal Teeth Condition: Normal Dentition ASA Classification ASA Score: ASA 2 Emergency Case?: No NPO Status NPO Status: NPO Clears >2 hours, Solids >8 hours Anesthesia Plan Resuscitation Status: Full Code Anesthesia Technique: General Anesthesia Airway Planned: Natural Airway Monitors Used: Standard Monitors
--- NOTE | 2024-01-05 09:18 | STOM_PTH ---
PATIENT: Eloina Nieto LOC: [facility] U#:[id number] AGE/SX: 58/F ROOM: RE01/05/[address]: Connor Santizo MD : [id number] BED: DIS: 01/05/2024 SPEC #: [id number] RECD: 01/05/24 12:53 STATUS: JARVIS RE #: [id number] PEPE: 01/05/24 09:[address]: Connor Santizo DEPT: Surgical Specimen RECD BY: Brooke Wheeler ENTERED: 01/05/24 12:55 SP TYPE: STOMACH OTHR DR: Janice Larson Tissues: 1 - STOMACH BIOPSY 2 - STOMACH BIOPSY 3 - STOMACH BIOPSY 4 - BIOPSY BOWEL Procedures: GROSS AND MICRO LEVEL 4 Comments: [id number]
[2024-01-05 09:58] VITALS: BP 121/89; PULSE 65; RESP 16; TEMP 36; O2SAT 98
[2024-01-05] MEDS: LORazepam 2 MG/ML VIAL 0.5 MG IVP (10:14)
[2024-01-05] MEDS: Normal Saline Flush 10 ML SYR IV (10:15)
[2024-01-05 10:20] VITALS: BP 120/94; PULSE 61; RESP 30; TEMP 36.5; O2SAT 100
[2024-01-05 10:30] VITALS: BP 117/85; PULSE 58; RESP 28; TEMP 36.3; O2SAT 93
[2024-01-05 10:40] VITALS: BP 140/73; PULSE 54; RESP 18; TEMP 36.3; O2SAT 92
[2024-01-05] MEDS: Ketorolac 30 MG/ML VIAL IVP (11:21)
--- NOTE | 2024-01-05 11:22 | W.ANESPOSTOP ---
Postoperative Evaluation Date, Time and Location Date Performed: 01/05/24 Time Performed: 11:22 Patient Location: Day Surgery Unit Vital Signs Most Recent Imported Vital Signs: Most Recent Vital Signs Temp Pulse Resp BP Pulse Ox 36.3 C L 54 L 18 140/73 92 01/05/24 10:40 01/05/24 10:40 01/05/24 10:40 01/05/24 10:40 01/05/24 10:40 Pain Score Most Recent Pain Score: Most Recent Pain Score Pain Level 6 01/05/24 10:40 Assessment Mental Status: Awake (Alert & Oriented to Patient Baseline) Airway and Respiratory Function: Patent airway with normal (patient baseline) respiratory exam Cardiovascular Function: Hemodynamically Stable Hydration Status: Adequately Hydrated Nausea & Vomiting: No Nausea or Vomiting Pain: Pain is tolerable per patient Peripheral Nerve Block: Patient did not receive a nerve block Postoperative Comments:: Pt had significant right hip pain post op requiring Rx and Xray.
== END 2024-01-05 11:40 | disposition home or self-care (01) ==
LOC: SUR 07:26
PROVIDERS: PCP Nurse Practitioner Family; Visit Provider Surgery
PROC: (CPT 45380; principal; 2024-01-05 09:00)
DX: K25.3 Acute gastric ulcer without hemorrhage or perforation (principal); R19.5 Other fecal abnormalities; Z12.11 Encounter for screening for malignant neoplasm of colon; D50.9 Iron deficiency anemia, unspecified; K63.5 Polyp of colon; K31.89 Other diseases of stomach and duodenum; K25.9 Gastric ulcer, unspecified as acute or chronic, without hemorrhage or perforation
CPT/HCPCS: 45380; 43239; 88305; 72170; J1885; J2001; J2060; J2704

== ENCOUNTER 2024-01-28 09:34 | Outpatient (REF) | payer BC, SELFPAY ==
[2024-01-28 14:49] LABS: HCT 35.9 % (36.0-46.0); HGB 11.6 g/dL (11.2-15.7); MCH 30.7 pg (27.0-33.0); MCHC 32.3 % (32.0-36.0); MCV 95 fL (80-95); MPV 9.8 fL (8.0-11.0); Platelet Count 303 10^3/uL (130-400); RBC 3.78 10^6/uL (3.93-5.22); RDW 12.5 % (11.7-14.6); RDW-SD 43.6 fL; WBC 4.89 10^3/uL (4.4-10.8)
[2024-01-28 14:53] LABS: ESR 7 mm/hr (0-30)
[2024-01-28 15:12] LABS: Iron 79 ug/dL (50-170); Total Iron Binding Capacity 271 ug/dL (250-450); Transferrin Sat 29 % (15-50)
[2024-01-28 15:22] LABS: Ferritin 66 ng/mL (8-252)
[2024-01-28 15:56] LABS: C-Reactive Protein < 0.50 mg/dL (<or=0.5)
[2024-01-28 21:49] LABS: Rheumatoid Factor <8.6 IU/mL (<12.0)
== END 2024-01-28 09:35 | disposition home or self-care (01) ==
LOC: NCHCN 09:34
PROVIDERS: PCP Nurse Practitioner Family; Visit Provider Nurse Practitioner Family
DX: D64.9 Anemia, unspecified (principal); M25.50 Pain in unspecified joint
CPT/HCPCS: 85027; 85652; 82728; 83540; 83550; 86140; 86431

== ENCOUNTER 2024-04-21 02:06 | Outpatient (CLI) | payer BC, SELFPAY ==
[2024-04-21 10:44] LABS: HCT 38.1 % (36.0-46.0); HGB 12.3 g/dL (11.2-15.7); MCH 31.5 pg (27.0-33.0); MCHC 32.3 % (32.0-36.0); MCV 98 fL (80-95); MPV 9.2 fL (8.0-11.0); Platelet Count 261 10^3/uL (130-400); RDW 12.6 % (11.7-14.6); RDW-SD 45.5 fL; WBC 5.42 10^3/uL (4.4-10.8)
[2024-04-21 11:04] LABS: Anion Gap 7.4 mmol/L (3-11); BUN 13 mg/dL (7-18); CO2 29.6 mmol/L (21.0-32.0); CREATININE 0.7 mg/dL (0.55-1.02); Calcium 9.1 mg/dL (8.5-10.1); Chloride 106 mmol/L (98-107); Estimated GFR 101.44 (mL/min/1.73m2); Glucose 110 mg/dL (74-106); Potassium 3.8 mmol/L (3.5-5.1); Sodium 143 mmol/L (136-145)
[2024-04-21 13:06] LABS: TSH (W/Ref FT4) 11.39 uIU/mL (0.36-3.74)
[2024-04-21 13:26] LABS: FREE T4 1.09 ng/dL (0.76-1.46)
== END 2024-04-21 02:07 | disposition home or self-care (01) ==
LOC: LBO 02:07
PROVIDERS: PCP Nurse Practitioner Family; Visit Provider Student in an Organized Health Care Education/Training Program
DX: M16.11 Unilateral primary osteoarthritis, right hip (principal); Z01.818 Encounter for other preprocedural examination; Z01.811 Encounter for preprocedural respiratory examination
CPT/HCPCS: 36415; 80048; 85027; 84439; 84443

== ENCOUNTER 2024-04-21 09:30 | Outpatient (CLI) | payer BC, SELFPAY ==
--- NOTE | 2024-04-21 09:15 | DI.RAD_ITS ---
Exam(s) XR PELVIS AP EXAM: XR PELVIS AP CLINICAL HISTORY: PREOP RIGHT JESSICA. TECHNIQUE: 2D digital imaging was performed. Single AP view. COMPARISON: CR XR PELVIS AP from 01/05/2024 FINDINGS: BONES: No acute fracture is present. No bony destructive lesion is seen. JOINTS: No dislocation present. Severe narrowing of the right hip joint space and prominent periartic ular spurring. Subchondral cysts noted both sides of the joint. The left hip joint space is maintai gemma. SI joints and pubic symphysis are unremarkable. SOFT TISSUE: Normal. IMPRESSION: Advanced degenerative changes of the right hip. DATA REPOSITORY: RADIATION DOSE DELIVERED:
== END 2024-04-21 09:31 | disposition home or self-care (01) ==
LOC: DIORS 09:30
PROVIDERS: PCP Nurse Practitioner Family; Referring Provider Nurse Practitioner Family; Visit Provider Physician Assistant
DX: M16.11 Unilateral primary osteoarthritis, right hip (principal)
CPT/HCPCS: 72170

== ENCOUNTER 2024-05-03 05:51 | Day surgery (SDC) | payer BC, SELFPAY ==
[2024-05-03] VITALS (60 sets, daily range): BP systolic 91–162; BP diastolic 53–98; PULSE 47–69; RESP 4–24; TEMP 36–36.5; O2SAT 92–100; BMI 29.1
[2024-05-03] MEDS: Celecoxib 200 MG CAP 400 MG PO (06:55)
[2024-05-03] MEDS: Gabapentin 300 MG CAP PO (06:55)
[2024-05-03] MEDS: Acetaminophen 500 MG TAB 1000 MG PO (06:55)
--- NOTE | 2024-05-03 06:55 | W.ANESPRE ---
General Info Date of Service Date Performed: 05/03/24 Height: 5 ft 2 in Weight: 72.3 kg Body Mass Index (BMI): 29.1 Surgical Procedure: Operation Date: 05/03/24 07:50 Proposed Procedure Side Surgeon p Hip Total Hip Anterior, ACTIS Right Fahad Olivares MD Meds Allergies and Home Medications Allergies Allergy/AdvReac Type Severity Reaction Status Date / Time No Known Drug Allergies Allergy none Verified 05/03/24 06:29 Home Medication ?Medication ?Instructions ?Recorded trazodone 50 mg tablet 100 mg PO QHS 11/26/23 sucralfate 1 gram tablet 1 g PO BID #60 tabs 01/05/24 levothyroxine 112 mcg capsule 112 mcg PO DAILY 01/12/24 bupropion HCl 150 mg tablet,12 hr 300 mg PO DAILY 03/09/24 sustained-release (Wellbutrin SR) omeprazole 40 mg capsule,delayed 40 mg PO DAILY #30 caps 03/14/24 release trazodone 100 mg tablet 300 mg PO HS 05/03/24 Current Visit Medications: Current Medications Generic Name Dose Route Start Last Admin Trade Name Jasvirq PRN Reason Stop Dose Admin Acetaminophen 1,000 mg 05/03/24 06:00 Acetaminophen 500 Mg Tab PO 05/03/24 23:59 PREOP JAIME Celecoxib 400 mg 05/03/24 06:00 Celecoxib 200 Mg Cap PO 05/03/24 23:59 PREOP JAIME Gabapentin 300 mg 05/03/24 06:00 Gabapentin 300 Mg Cap PO 05/03/24 23:59 PREOP JAIME Ringer's Solution 1,000 mls @ 80 mls/hr 05/03/24 06:00 IV 05/03/24 23:59 INFUSION JAIME Cefazolin Sodium/Dextrose 2 gm in 50 mls @ 100 mls/hr 05/03/24 06:00 Ancef Duplex IVPB 05/03/24 23:59 PREOP JAIME Tranexamic Acid/Sodium Chloride 1,000 mg in 100 mls @ 600 mls/hr 05/03/24 06:00 IVPB 05/03/24 23:59 PREOP JAIME IV Miscellaneous Supplies 1 each 05/03/24 06:00 Iv Access IV 05/03/24 23:59 DIRECTED JAIME Sodium Chloride 0 ml 05/03/24 06:00 Normal Saline Flush 10 Ml Syr IV 05/03/24 23:59 PRN PRN Sodium Chloride 0 ml 05/03/24 06:00 Normal Saline 10 Ml Vial IJ 05/03/24 23:59 DIRECTED PRN Sterile Water 0 ml 05/03/24 06:00 Water,Injection,Sterile 10 Ml Vial IJ 05/03/24 23:59 DIRECTED PRN PFSH Active Problems Active Problems: Problem Status Onset Code Osteoarthritis of right hip Acute M16.11 Peptic ulcer disease Chronic K27.9 Iron deficiency anemia due to chronic blood loss Acute D50.0 Occult blood in stools Acute R19.5 Contact dermatitis and eczema due to plant Acute L24.7 Radial styloid tenosynovitis [de quervain] Acute 05/15/19 M65.4 Uterine fibroid Chronic D25.9 Status post endometrial ablation Resolved Z98.890 Hypothyroid Chronic E03.9 Abnormal uterine bleeding (AUB) Resolved N93.9 Hypothyroidism Acute 02/14/13 E03.9 Medical History Medical History Anxiety Insomnia Degeneration of cervical intervertebral disc Strabismus Hyperlipidemia Surgical History Surgical History History of tonsillectomy H/O meniscectomy of right knee Hx of colonoscopy Hx of appendectomy Hx of arthroscopic knee surgery History of esophagogastroduodenoscopy (~12/2023) Tobacco Smoking/Tobacco Use Status: Never Alcohol Alcohol Intake: current Alcohol intake frequency: a few times a month Alcohol type: beer and wine Details: monthly or less Substance Use Substance use: Daily Substance use type: marijuana Details: edibles for sleep t-4 Prental History History 1 Para 0 Hx # Term Pregnancies 0 Multiple births Hx # Pregnancies Ectopic pregnancies AB induced Hx Number of Living Children AB spontaneous 1 Vital Signs and Lab Results Vital Signs Most Recent Vital Signs in EMR: Most Recent Vital Signs Temp Pulse Resp BP Pulse Ox 36.5 C 61 16 102/78 100 05/03/24 06:10 05/03/24 06:10 05/03/24 06:10 05/03/24 06:10 05/03/24 06:10 Lab Results Blood Type / Crossmatch: No Data to Display Complete Blood Count: White Blood Count 5.42 10^3/uL (4.4-10.8) 04/21/24 10:37 Red Blood Count 3.90 10^6/uL (3.93-5.22) L 04/21/24 10:37 Hemoglobin 12.3 g/dL (11.2-15.7) 04/21/24 10:37 Hematocrit 38.1 % (36.0-46.0) 04/21/24 10:37 Platelet Count 261 10^3/uL (130-400) 04/21/24 10:37 Complete Metabolic Panel: Sodium 143 mmol/L (136-145) 04/21/24 10:37 Potassium 3.8 mmol/L (3.5-5.1) 04/21/24 10:37 Chloride 106 mmol/L (98-107) 04/21/24 10:37 Carbon Dioxide 29.6 mmol/L (21.0-32.0) 04/21/24 10:37 BUN 13 mg/dL (7-18) 04/21/24 10:37 Creatinine 0.7 mg/dL (0.55-1.02) 04/21/24 10:37 Est GFR (CKD-EPI 2020) 101.44 (mL/min/1.73m2) 04/21/24 10:37 Calcium 9.1 mg/dL (8.5-10.1) 04/21/24 10:37 Glucose 110 mg/dL (74-106) H 04/21/24 10:37 Liver Function Panel: No Data to Display Coagulation Panel: No Data to Display Cardiac Panel: No Data to Display Arterial Blood Gas: No Data to Display Venous Blood Gas: No Data to Display Pancreas Panel: No Data to Display Thyroid Panel: Thyroid Stimulating Hormone (TSH) 11.39 uIU/mL (0.36-3.74) H 04/21/24 10:37 Infectious Disease: No Data to Display Blood Cultures: No Data to Display Toxicology Panel: No Data to Display Anesthesia Assessment and Plan Anesthesia History Personal History: No History of Anesthesia Complications Family History: No Family History of Anesthesia Complications Exercise Tolerance Exercise Tolerance: Metabolic Equivalents>4 Pertinent Negatives Pertinent Negatives: No Symptoms of GERD Cardiac & Pulmonary Exam Cardiac Exam: Normal S1/S2 Heart Sounds Pulmonary Exam: Clear Bilateral Breath Sounds Implantable Cardiac Device Does patient have a Pacemaker or an ICD?: No Airway Exam Known Difficult Airway: No Mallampati Class: 2 Mouth Opening: Normal (> 3cm) Thyromental Distance: Greater than 3 cm Neck Range of Motion: Full ROM Neck Circumference: Normal Teeth Condition: Normal Dentition ASA Classification ASA Score: ASA 2 Emergency Case?: No NPO Status NPO Status: NPO Clears >2 hours, Solids >8 hours Anesthesia Plan Resuscitation Status: Full Code Anesthesia Technique: Spinal Anesthesia Airway Planned: Natural Airway Monitors Used: Standard Monitors
--- NOTE | 2024-05-03 07:12 | PDOC.DSDIS_ITS ---
Date of service: 05/03/24 Time of Service: 07:13 Discharge Plan Disposition Patient Disposition: Home Condition: Good Discharge Details Reason For Visit: R THR Attending Provider: Fahad Olivares Primary Care Provider: Janice Larson Home Meds and New Rx's Prescriptions: New celecoxib 200 mg capsule 200 mg PO BID Qty: 60 0RF aspirin 81 mg tablet,delayed release (DR/EC) 81 mg PO BID Qty: 60 0RF acetaminophen 500 mg tablet 1,000 mg PO TID Qty: 90 3RF dexamethasone 4 mg tablet 4 mg PO DAILY Qty: 2 0RF oxycodone 5 mg tablet 5 mg PO Q4H MDD 6 tabs PRN (Reason: pain) Qty: 20 0RF Continued omeprazole 40 mg capsule,delayed release(DR/EC) 40 mg PO DAILY Qty: 30 3RF bupropion HCl [Wellbutrin SR] 150 mg tablet sustained-release 12 hr 300 mg PO DAILY trazodone 50 mg tablet 100 mg PO QHS Patient Comments: 02/09/22- pt unsure of dose levothyroxine 112 mcg capsule 112 mcg PO DAILY trazodone 100 mg tablet 300 mg PO HS Patient Comments: TAKE 3 TABLETS BY MOUTH EVERY EVENING sucralfate 1 gram tablet 1 g PO BID Qty: 60 0RF Discharge Instructions Additional Instructions: Total Hip Discharge Instructions Activity: The most important activity is to walk. You should try to take short walks a few times a day. You have no restrictions on movement or positioning, but do not try to force what you do. You will find some stiffness and weakness with hip flexion (lifting your knee). Do not try to strengthen this too early, continue to practice walking and stairs and this will come. - Outpatient physical therapy can be helpful to help return you to a normal gait and improve your flexibility and strength. This can start around 2 weeks. For some patients, it?s not necessary. Usually this is determined at the time of discharge or at the first post-operative visit. - You should wear the JOHNNY hose on both legs for 2 weeks. Dressing: Keep the surgical dressing in place for at least one week. After the first week it may be removed and replace with light gauze and tape or nothing. It may get wet after 3 days but avoid soaking the dressing. If it gets wet, just lightly pat dry. It is important to always keep some gauze between skin folds, especially when you are sitting. Spend some time with the wound exposed when you are lying flat as the incision does wrinkle onto itself. Medications: - You should take Tylenol and an anti-inflammatory Celebrex as your primary pain control medications. If the Celebrex is too expensive or not covered, please call the office for another alternative (Advil/Ibuprofen or Naproxen/Aleve). - You have been prescribed a stronger pain medication Oxycodone for breakthrough pain, take as needed as prescribed. - You have continue your omeprazole to help reduce stomach acid and reflux. - You have also been prescribed Decadron to help with post-operative nausea and pain. You will take this for two days starting tomorrow. - You will be taking [Aspirin 81mg twice a day] for DVT prevention unless instructed otherwise. - If you have constipation you should take Colace or Miralax (both [id number]). It takes most people 3-4 days to have a bowel movement. Follow-up: 2 weeks If you have any acute concerns or questions, please do not hesitate to contact the office at [phone]. You may contact Dr. Olivares with any questions after hours through the hospital at [phone] or on his cell phone at [phone]. Referrals: Fahad Olivares MD [ [facility]] - Equipment/Supplies: Walker Activity:: Activity as Tolerated Shower/Bathe:: 72 hours Diet:: As Tolerated Discharge Orders Discharge Orders: Discharge Order (Routine); Ordered 05/03/24 Ordered By: Jasper Leon DS: Diagnosis Discharge Diagnosis (1) Osteoarthritis of right hip: Status: Acute
[2024-05-03] MEDS: Lactated Ringers 1,000 ML 80 ML IV ×2 (07:25→10:56)
--- NOTE | 2024-05-03 07:49 | W.PM.OP ---
Date of service: 05/03/24 Time of Service: 07:50 Operative Note Operative Note PRE-OP DIAGNOSIS: Right Hip Osteoarthritis POST-OP DIAGNOSIS: same PROCEDURE: Right Anterior Total Hip Arthroplasty SURGEON: Fahad Olivares TELEGRAPH INSPECTOR: Jasper Leon ANESTHESIA TYPE: Spinal Refer to Anesthesia Record ESTIMATED BLOOD LOSS: 250 PATHOLOGY: none sent TOURNIQUET TIME: 0 COMPLICATIONS: None Patient was transported to: PACU Patient's condition: stable Implants: 1. Depuy Clarence Acetabular Component, 48mm 2. Depuy Acetabular Liner, 59k40mg 3. Depuy Actis High Offset Collared Femoral Stem, Size 2 4. Depuy Altrx Ceramic Femoral Head, Size 32+5mm Indications: I have seen Eloina in clinic for symptoms of hip arthritis, confirmed with radiographic findings. She has exhausted nonoperative methods and was having significant limitations in daily function and desired better function and less pain. I discussed the technical details of a hip replacement. I explained the risks of the procedure to include, but not limited to, bleeding, infection, pain, stiffness, fracture, damage to nerves and vessels, damage to muscles and tendons, loosening, instability, leg length inequality, need for repeat procedure, blood clot and cardiopulmonary demise. Despite these risks, Eloina elected to proceed. Findings: There was significant signs of arthritis throughout the hip. Procedure Description: Eloina was greeted in the preoperative holding area where the correct side was identified and marked. The consent was reviewed with the patient and signed. The history and physical was updated. All questions were answered. She was taken back to the operating room. A spinal anesthestic was then administered. The feet were wrapped with cast padding and Coban and then placed into the boot liners and then into the boots. Care was taken to protect the skin and make sure the heels were fully down and the boots were stable. The patient was then positioned onto the HANA table. Both legs were held in a neutral position. SCDs were applied. The patient was then slid down onto a peroneal post. Prophylactic antibiotics in the form of Cefazolin were administered. 1g of Tranxemic Acid was given intravenously within 30 minutes of incision. The right leg was then prepped with Chloraprep and draped in a standard fashion. A second prep with Chloraprep was performed prior to placement of a shower-curtain type drape with Iodine impregnated skin protection. A timeout to confirm correct identity, side and site, procedure, allergies, anesthesia, and medical concerns was performed. An obliquely oriented incision was made starting lateral to the ASIS and running distal over the Tensor Fascia Lizbeth (TFL) muscle belly toward the fibular head, approximately 10cm. The skin and soft tissue was dissected sharply, through Leila?s fascia, and to the fascia of the TFL. With the fascia and superior border of the IT band identified, the fascia was incised with a new knife just above any perforators from the IT band. The TFL muscle belly was bluntly dissected away from the fascia and moved laterally. The fat between TFL and rectus was identified to ensure the dissection was not within the TFL. Blunt dissection created space between abductors and the capsule and retractor was placed over the lateral femoral neck. The fibers of the rectus femoris tendon were identified and these were freed from the anterior capsule. A second cobra retractor was placed around the medial femoral neck. The TFL was further retracted laterally to show the deep fascia. Careful dissection through this layer identified three main crossing vessels of the lateral femoral circumflex. These were cauterized in multiple locations and then cut without any noticeable bleeding. The TFL was further released bluntly from the deep fascia to expose anterior hip capsule and fat The soft tissue orthopaedic retractor was then placed beneath the TFL and against sartorius and medial soft tissues to protect and retract the soft tissues. A T-capsulotomy was then performed starting at the superior lateral acetabulum and moving distally to the intertrochanteric ridge. These capsular flaps were tagged with a No. 1 Ethibond and elevated from within. The capsular flaps were released to the shoulder of the lateral neck and to the lesser trochanter to give excellent visualization of the proximal femur. A neck osteotomy was performed using an oscillating saw based on preoperative templates. This cut started in the shoulder and of the lateral neck and exited medially. The saw was at all times directed medially to avoid injury to the greater trochanter. Gross traction was applied to the leg and the osteotomy opened. The femoral head was removed with a corkscrew, making sure to protect the TFL on its exit. Traction was released after head removal. This was measured on the back table to determine the starting reamer size. Portions of the rectus obscuring visualization were minimally elevated off the superior acetabulum. An anterior retractor was placed over the anterior wall between capsule and labrum and attached to the Gripper retraction system. The femur was rotated to 90 degrees and medial capsule was fully released until the lesser trochanter was palpable and visible; the femur was returned to 30 degrees. A posterior retractor was placed similarly between capsule and labrum. This provided excellent visualization. The contents of the cotyloid fossa were removed with electrocautery and the labrum was removed with a knife. There was a notable floor osteophyte. There was significant chondromalacia of the superior acetabulum. Acetabular reaming began with a 44mm reamer. This first reaming was directed anterior to posterior and medial to get down to the true floor. This was inspected and reamed until the true floor was reached. The anterior retractor was then released and entry and exit was provided by traction on the capsular flaps. I then reamed sequentially up to a 48mm reamer where good fit was obtained. The larger reamers were oriented based on anatomical reference of the anterior and lateral sánchez to ensure proper abduction and anteversion. Positioning and size was confirmed with the fluoroscopy. A 48mm Depuy Clarence acetabular component was selected. The acetabulum was reamed around the periphery with the selected acetabular size to prevent a rim fit. The deep tissues were irrigated. The acetabular component was then impacted in a position of about 40-45 degrees of abduction and 15-20 degrees of anteversion, using the patient?s anatomy as the ultimate landmark. Fluoroscopy was used to confirm this. There was excellent button attaching machine operator of the acetabular component and the inserting handle was removed. The acetabular liner, Depuy [id number] polyethylene liner, was inserted and lined up with the tines of the acetabular component. There was no soft tissue interposition. The liner was then impacted into position and confirmed to be well-seated. A portion of the sury-articular cocktail was then injected around the acetabulum into the capsule and periosteum. This cocktail consisted of 123mg of Ropivacaine, 0.25mg of Epinephrine, 0.04mg of Clonidine, and 15mg of Ketorolac, diluted to 50cc. The leg was rotated to 120 degrees. Any remaining medial capsule was released until the lesser trochanter was easily palpable. A retractor was placed medially. The lateral capsule was further released into the shoulder to allow access to the greater trochanter. A Shelley retractor was placed over the greater trochanter which allowed the trochanter to flip in front of the capsule for excellent exposure. The leg was brought down into maximal extension and 20 degrees of adduction while ensuring there was no impingement on the acetabulum. Any remnant capsule within the trochanter was released. Piriformis and obturator externis were identified and protected. There was excellent access to the proximal femur. The lateral neck remnant was removed with a rongeur. A blunt canal probe was used to identify the canal and trajectory for later broaching. A box osteotome initiated the broach course. A small curved rasp and a curved curette were used to work laterally. Broaching then began with a starter Actis broach. This was inserted manually around the trochanter and into the canal before mallet blows. The broach was seated to a few millimeters below the cut level based on the neck cut and the preoperative template. Sequential broaching was continued with the Dextrse pneumatic broaching device until a tight fit was obtained with good rotational control of the femur. A trial high offset neck was inserted along with a +5 trial head. The leg was brought out of extension and adduction and then reduced with traction and internal rotation. The leg was stable anteriorly in a position of 30 degrees of extension and 90 degrees of external rotation. Fluoroscopy was used to ensure there was no fracture and the stem was seated well. Leg lengths were checked with an AP pelvis and pelvic reference points. Once content with the desired offset and leg lengths, the leg was brought back into extension, external rotation and adduction. The periosteum and surrounding tissue was injected with remaining portion of the sury-articular cocktail. The proximal femur was irrigated as well as the deep tissues. The Depuy Actis high offset collared stem, size 2, was then manually inserted into the proximal femur making sure to control rotation. It was then malleted into position with light blows, giving breaks to allow bone expansion and decrease risk of fracture. The selected Depuy Altrx Ceramic Head, size 32+5mm, was then placed onto the clean and dry trunnion and secured with impaction onto the tapered fit. The leg was brought back out of extension and adduction and reduced with traction and internal rotation. Stability was confirmed with no shuck at 90 degrees of external rotation and 30 degrees of extension. No impingement through range of motion arc. Final x-ray images were obtained with fluoroscopy to confirm adequate positioning and no intraoperative fracture. The deep tissues were thoroughly irrigated with Surgiphor, betadine solution. This was allowed to sit in the wound for 3 minutes before being thoroughly irrigated out with normal saline. The capsule was then reapproximated with the previously placed Ethibond sutures. The TFL fascia was finally closed with a No. 2 Stratafix, barbed suture. Deep tissues were then reapproximated with 0 Vicryl and a running 2-0 Vicryl. The skin was closed with a running 4-0 Monocryl in a subcuticular fashion. This was reinforced with skin glue. A Mepilex silver dressing was applied. At the end of the case, all counts were correct. Eloina was transferred to the hospital bed without difficulty and suffering no apparent complication. Eloina has a good prognosis. Physical therapy will start today and without restrictions, weight-bearing as tolerated. Aspirin 81mg BID will be used for DVT prophylaxis.
[2024-05-03] MEDS: ceFAZolin 2 GM/50 ML BAG IVPB (07:50)
[2024-05-03] MEDS: TRANEXAMIC ACID/SOD. CHL. 1,000 MG/100 ML BAG 600 MG IVPB (08:05)
--- NOTE | 2024-05-03 09:15 | DI.RAD_ITS ---
Exam(s) XR HIP RT IN OR EXAM: XR HIP RT IN OR CLINICAL HISTORY: right hip oa TECHNIQUE: 2D and realtime digital imaging was performed. CONTRAST MATERIAL: Refer to procedure report. COMPARISON: CR XR PELVIS AP from 04/21/2024 FINDINGS: Fluoroscopy was provided for Dr. Olivares during the performance of a right total hip arthroplasty. Please refer to the procedure report for complete details. Ka,r=4.91 mGy IMPRESSION: RADIATION DOSE DELIVERED: 0.0 0.0 0
[2024-05-03] MEDS: fentaNYL 100 MCG/2 ML VIAL IVP ×3 (09:56→10:18)
[2024-05-03] MEDS: HYDROmorphone 1 MG/ML SYR IVP ×2 (10:43→10:53)
[2024-05-03] MEDS: oxyCODONE 5 MG TAB PO (11:10)
--- NOTE | 2024-05-03 12:49 | PT.INIE ---
PT Notes Visit Reasons: R THR Physical Therapy Day Surgery Initial Evaluation Date: 05/03/2024 Referring Doctor: ULISES Restrepo PT Orders: PT CONSULT: S/P Ortho Surgery Precautions: WBAT on the R LE with AD. Patient Profile/Admitting Diagnosis: Eloina is a 58-year-old female with degenerative joint disease of the right hip and is status post right total hip arthroplasty on postoperative day 0. PMHX: Medical History (Updated 03/09/24 @ 08:03 by ULISES Terrazas) Anxiety Insomnia Degeneration of cervical intervertebral disc Strabismus Hyperlipidemia Surgical History (Updated 01/05/24 @ 11:06 by Aubree Duff) History of esophagogastroduodenoscopy (~12/2023) Social History/Home Situation: Lives with renata in a priavte home with 2 steps to enter without rails but with wall for support. has a flight of steps to the second floor of the house where her office is. 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 Equipment Owned/DME: None Subjective: Complained of pain in the outer side of her right hip with movement. reported being foggy which the Nurse anetshesiologist attributed to having had Versed earlier. Patient also had Fentanyl as well as Dilaudid. happy that she could move her hip now without too much pain. Objective: General Observation: Mepilex Ag over surgical incision. TEDS to be legs. Mental Status: A and O x 4 Pain: 2-3/10 on the lateral hip with movement ROM: Right Lower Extremity: Hip flexion WFL. Hip abduction WFL. Knee flexion WFL. Ankle dorsiflexion WFL. Ankle plantarflexion WFL. Left Lower Extremity: Hip flexion WFL. Hip abduction WFL. Knee flexion WFL. Ankle dorsiflexion WFL. Ankle plantarflexion WFL. Strength: Right Lower Extremity: Hip flexors 4-/5. Hip abductors 4-/5. Knee flexors 4/5. Knee extensors 4-/5. Ankle dorsiflexors 5/5. Ankle plantarflexors 5/5. Left Lower Extremity:Hip flexors 5/5. Hip abductors 5/5. Knee flexors 5/5. Knee extensors 5/5. Ankle dorsiflexors 5/5. Ankle plantarflexors 5/5. Sensation: Intact as to pain and light pressure in B LE Bed Mobility/Transfers: Minimal cueing provided for use of B hands as needed for support, movement sequence, AD management, and posture to reduce fall risk and minimize pain report Supine to sit standby assist Sit to stand standby assist with FWW Stand to sit standby assist Bed to chair standby assist Gait: Facilitate safe and correct performance of surface covering a distance of 150 feet with reciprocal heel toe swing through gait pattern requiring only standby assist, minimal verbal cueing for safe sequence, AD management, and posture to minimize pain reported reduce fall risk. He Stairs: Guided patient with safe and correct negotiation of 6 x 4 inch steps and 4 x 6 inch steps while holding onto bilateral rails with step-to gait pattern for correct movement sequence, hand placement, and posture with minimal verbal cueing for safe sequence, AD management, and posture to minimize pain reported reduce fall risk. He Balance: Static Sitting: Normal Dynamic Sitting: Normal Static Standing: Fair Dynamic Standing: Fair Special Tests: Mobility Limitations Standardized Measure [facility] 6 clicks Basic Mobility Inpatient Short Form: Raw Score: 23 CMS Score: 11% deficit Informed Consent/Education: Patient instructed in purpose of PT consult. Packet containing JESSICA exercise protocol has been given to patient. Education and training on initial set of exercises that can be done at home have been completed with patient. Trained patient with correct performance of exercises below to maximize motor control, joint flexibility, soft tissue extensibility of the R hip musculature to facilitate return to independent functional mobility performance. Access Code: [email or web address] URL: [email or web address] Date: 02/02/2023 Prepared by: Charlee Morales Exercises - Gluteal Sets - 1 x daily - 7 x weekly - 1 sets - 10 reps - 5 hold - Supine Heel Slide - 1 x daily - 7 x weekly - 1 sets - 10 reps - 5 hold - Supine Ankle Pumps - 1 x daily - 7 x weekly - 1 sets - 10 reps - 5 hold - Seated March - 1 x daily - 7 x weekly - 1 sets - 10 reps - 5 hold - Seated Long Arc Quad - 1 x daily - 7 x weekly - 1 sets - 10 reps - 5 hold Assessment: Patient requires the use of front wheeled walker for all mobility ADL performance to maximize independence and reduce fall risk.Patient presents with clinical signs and symptoms consistent with current/admitting diagnoses that have resulted to mobility limitations, gait instability, generalized weakness, and impairment of motor control as by the following impairment level findings: 1. Decreased strength to right hip major muscle groups 2. Impaired standing balance Impairments are contributing to the following functional limitations: 1. Inability to safely ambulate without assistive device 2. Increase completion time for mobility ADL performance 3. Increased fall risk Patient is assessed as a 31257 moderate complexity based on the following: History: 58-year-old female with impairment level findings, functional limitations, and past medical history as indicated above Examination: Demonstrable impairment in strength, balance, and mobility level with underlying impairments and functional limitations as documented above Presentation: Evolving Decision Makin moderate complexity Goals: N/A. PT evaluation and 1-2 treatment sessions only for functional mobility training using recommended AD and for HEP instruction. Plan of Care/Treatment Plan: N/A. PT evaluation and 1-2 treatment session only for functional mobility training using recommended AD and for HEP instruction. DISCHARGE RECOMMENDATIONS: Home when medically cleared by orthopedic surgeon. Recommend outpatient PT services in order to optimize functional mobility outcomes and facilitate return to independent community ambulation without an assistive device. TREATMENT CODE/TIME: 68864 x 20 minutes for 1 unit, [id number] 11 minutes for 1 unit (12:49?13:2). Thank you for the opportunity to participate in the care of this patient. Please sign an return this page within 30 days if you agree with the above POC. Thank you! Physician Signature Date [facility] Charlee Morales PT, DPT, CLT [facility] [place], [place]
--- NOTE | 2024-05-03 13:09 | W.ANESPOSTOP ---
Postoperative Evaluation Date, Time and Location Date Performed: 05/03/24 Time Performed: 13:09 Patient Location: Day Surgery Unit Vital Signs Most Recent Imported Vital Signs: Most Recent Vital Signs Temp Pulse Resp BP Pulse Ox 36.2 C L 65 18 100/66 98 05/03/24 12:10 05/03/24 12:10 05/03/24 12:10 05/03/24 12:10 05/03/24 12:10 Pain Score Most Recent Pain Score: Most Recent Pain Score Pain Level 2 05/03/24 12:40 Assessment Mental Status: Awake (Alert & Oriented to Patient Baseline) Airway and Respiratory Function: Patent airway with normal (patient baseline) respiratory exam Cardiovascular Function: Hemodynamically Stable Hydration Status: Adequately Hydrated Nausea & Vomiting: No Nausea or Vomiting Pain: Pain is tolerable per patient Peripheral Nerve Block: Patient did not receive a nerve block
== END 2024-05-03 13:55 | disposition home or self-care (01) ==
PROVIDERS: PCP Nurse Practitioner Family; Visit Provider Student in an Organized Health Care Education/Training Program
PROC: (CPT 27130; principal; 2024-05-03 07:30)
DX: M16.11 Unilateral primary osteoarthritis, right hip (principal); E78.5 Hyperlipidemia, unspecified; E03.9 Hypothyroidism, unspecified; K27.9 Peptic ulcer, site unspecified, unspecified as acute or chronic, without hemorrhage or perforation
CPT/HCPCS: 27130; 97162; 97530; 73501; C1776; J0690; J1100; J1171; J2250; J2371; J2401; J2405; J2704; J3010

== ENCOUNTER 2024-05-18 15:18 | Outpatient (CLI) | payer BC, SELFPAY ==
--- NOTE | 2024-05-18 09:30 | DI.RAD_ITS ---
Exam(s) XR HIP RT COMPLETE AP PELVIS EXAM: XR HIP RT COMPLETE AP PELVIS CLINICAL HISTORY: 1ST POST OP S/P R JESSICA. TECHNIQUE: 2D digital imaging was performed. Two images were obtained. AP pelvis and lateral hip vi ews were obtained. COMPARISON: CR XR PELVIS AP from 04/21/2024 XR HIP RT IN OR from 05/03/2024 FINDINGS: BONES: There are stable post operative changes of a right total hip arthroplasty present. No fractur e or dislocation. JOINTS: The orthopedic hardware is in good position. No evidence of hardware loosening. SOFT TISSUE: Normal. IMPRESSION: Stable right total hip arthroplasty. DATA REPOSITORY: RADIATION DOSE DELIVERED:
== END 2024-05-18 15:19 | disposition home or self-care (01) ==
LOC: DIORS 15:18
PROVIDERS: PCP Nurse Practitioner Family; Visit Provider Student in an Organized Health Care Education/Training Program
DX: Z96.641 Presence of right artificial hip joint (principal); Z47.1 Aftercare following joint replacement surgery
CPT/HCPCS: 73502

== ENCOUNTER 2024-08-09 22:15 | Outpatient (REF) | payer BC, SELFPAY ==
[2024-08-09 22:28] LABS: HCT 38.6 % (36.0-46.0); HGB 13.1 g/dL (11.2-15.7); MCH 31.4 pg (27.0-33.0); MCHC 33.9 % (32.0-36.0); MCV 93 fL (80-95); MPV 10.1 fL (8.0-11.0); Platelet Count 261 10^3/uL (130-400); RBC 4.17 10^6/uL (3.93-5.22); RDW 12.5 % (11.7-14.6); RDW-SD 42.5 fL; WBC 3.74 10^3/uL (4.4-10.8)
[2024-08-09 22:51] LABS: Iron 63 ug/dL (50-170); Total Iron Binding Capacity 283 ug/dL (250-450); Transferrin Sat 22 % (15-50)
[2024-08-09 23:04] LABS: ALT 19 U/L (14-59); AST 23 U/L (15-37); Albumin 4.3 g/dL (3.4-5.0); Alkaline Phosphatase 86 U/L (46-116); Anion Gap 8.6 mmol/L (3-11); BUN 8 mg/dL (7-18); Bilirubin, Total 0.46 mg/dL (0.2-1.0); CO2 29.4 mmol/L (21.0-32.0); CREATININE 0.7 mg/dL (0.55-1.02); Calcium 9.4 mg/dL (8.5-10.1); Calculated LDL 150 mg/dL (<100); Chloride 103 mmol/L (98-107); Cholesterol 272 mg/dL (<200); Estimated GFR 101.44 (mL/min/1.73m2); Ferritin 49 ng/mL (8-252); Glucose 85 mg/dL (74-106); HDL Cholesterol 112 mg/dL (40-60); Potassium 3.8 mmol/L (3.5-5.1); Sodium 141 mmol/L (136-145); TSH (W/Ref FT4) 18.72 uIU/mL (0.36-3.74); Total Protein 7.1 g/dL (6.4-8.2); Triglyceride 52 mg/dL (<150)
[2024-08-09 23:23] LABS: FREE T4 0.95 ng/dL (0.76-1.46)
== END 2024-08-09 22:16 | disposition home or self-care (01) ==
LOC: NCHCN 22:15
PROVIDERS: PCP Nurse Practitioner Family; Visit Provider Nurse Practitioner Family
DX: E03.9 Hypothyroidism, unspecified (principal); E78.5 Hyperlipidemia, unspecified; Z86.39 Personal history of other endocrine, nutritional and metabolic disease
CPT/HCPCS: 80053; 80061; 85027; 82728; 83540; 83550; 84439; 84443

== ENCOUNTER 2024-10-09 14:52 | Outpatient (REF) | payer BC, SELFPAY ==
[2024-10-09 16:31] LABS: TSH 0.65 uIU/mL (0.36-3.74)
== END 2024-10-09 14:53 | disposition home or self-care (01) ==
LOC: NCHCN 14:52
PROVIDERS: PCP Nurse Practitioner Family; Visit Provider Nurse Practitioner Family
DX: E03.9 Hypothyroidism, unspecified (principal)
CPT/HCPCS: 84443

== ENCOUNTER 2025-05-17 15:42 | Outpatient (CLI) | payer BC, SELFPAY ==
--- NOTE | 2025-05-17 15:15 | DI.RAD_ITS ---
Exam(s) XR HIP RT AP LAT ONLY EXAM: XR HIP RT AP LAT ONLY CLINICAL HISTORY: F/U RIGHT JESSICA. TECHNIQUE: 2D digital imaging was performed. COMPARISON: CR XR HIP RT COMPLETE AP PELVIS from 05/18/2024 FINDINGS: 3 views Position alignment of the components of the right hip prosthesis remain stable no evidence of fracture or loosening and no evidence of osteomyelitis. IMPRESSION: Stable satisfactory appearance. DATA REPOSITORY: RADIATION DOSE DELIVERED:
== END 2025-05-17 15:43 | disposition home or self-care (01) ==
LOC: DIORS 15:42
PROVIDERS: PCP Nurse Practitioner Family; Visit Provider Student in an Organized Health Care Education/Training Program
DX: Z96.641 Presence of right artificial hip joint (principal)
CPT/HCPCS: 73502

== ENCOUNTER 2025-05-29 10:25 | Outpatient (REF) | payer BC, SELFPAY ==
[2025-05-29 15:58] LABS: HCT 40.9 % (36.0-46.0); HGB 13.8 g/dL (11.2-15.7); MCH 31.7 pg (27.0-33.0); MCHC 33.7 % (32.0-36.0); MCV 94 fL (80-95); MPV 10.6 fL (8.0-11.0); Platelet Count 276 10^3/uL (130-400); RBC 4.35 10^6/uL (3.93-5.22); RDW 12.5 % (11.7-14.6); RDW-SD 43.0 fL; WBC 3.61 10^3/uL (4.4-10.8)
[2025-05-29 16:34] LABS: Iron 84 ug/dL (50-170); Total Iron Binding Capacity 301 ug/dL (250-425); Transferrin Sat 28 % (15-50)
[2025-05-29 17:10] LABS: Ferritin 57 ng/mL (7-271); TSH (W/Ref FT4) 0.75 uIU/mL (0.55-4.78)
[2025-05-29 17:54] LABS: Cholesterol 256 mg/dL (<200); HDL Cholesterol 109 mg/dL (>40)
== END 2025-05-29 10:26 | disposition home or self-care (01) ==
LOC: NCHCN 10:25
PROVIDERS: PCP Nurse Practitioner Family; Visit Provider Nurse Practitioner Family
DX: Z86.39 Personal history of other endocrine, nutritional and metabolic disease (principal); E03.9 Hypothyroidism, unspecified; Z00.00 Encounter for general adult medical examination without abnormal findings; E78.5 Hyperlipidemia, unspecified
CPT/HCPCS: 80053; 80061; 85027; 82728; 83540; 83550; 84443

== ENCOUNTER → 2025-06-26 00:37 | Outpatient (CLI) | payer BC, SELFPAY ==
--- NOTE | 2025-06-26 | DI.MAMMO_ITS ---
Exam(s) MAMMO SCREENING EXAM: MAMMO SCREENING CLINICAL HISTORY: SCREENING MAMMO Z12.31 TECHNIQUE: Mammograms were interpreted according to the usual protocol including computer analysis with CAD system, tomosynthesis and C-view imaging. COMPARISON: 2015 through 2022 FINDINGS: The breasts are composed of scattered fibroglandular densities, Breast Density category B. No suspicious masses or suspicious microcalcifications are seen. No skin thickening or abnormal axillary lymph nodes are seen. There has been no significant change from prior exams. IMPRESSION: BI-RADS Category 1, Negative mammogram Yearly screening mammography is recommended. Breast Density - Category B - There are scattered areas of fibroglandular density. Breast density Category C or D implies that the patient has dense breast tissue. Dense breast tissue can make it harder to find cancer on a mammogram. Dense breast tissue is also associated with an increased risk of breast cancer. This information about the result of the mammogram report was provided to the patient to raise their awareness. Use this report when you speak with the patient about their risks for breast cancer, which includes their family history. At that time, you may recommend additional screening tests (Ultrasound or MRI) as these tests may add significant information. A negative radiographic report should not delay biopsy if a dominant or clinically suspicious mass is present. Up to ten percent of cancers are not identified on mammography. A negative report may reinforce clinical impression. Adenosis and dense breasts may obscure an underlying neoplasm. False positive reports average 6 to 10%. Patient will receive a letter notifying them of these results.
== END ==
LOC: DI 00:37
PROVIDERS: PCP Nurse Practitioner Family; Visit Provider Nurse Practitioner Family
DX: Z12.31 Encounter for screening mammogram for malignant neoplasm of breast (principal)
CPT/HCPCS: 77063; 77067

== ENCOUNTER 2025-06-26 16:16 | Outpatient (CLI) | payer BC, SELFPAY ==
[2025-06-26 18:20] LABS: ALT 17 U/L (10-49); AST 23 U/L (<34); Albumin 4.5 g/dL (3.2-5.0); Alkaline Phosphatase 75 U/L (46-116); Anion Gap 8.9 mmol/L (3-11); BUN 10 mg/dL (9-23); Bilirubin, Total 0.7 mg/dL (0.2-1.2); CO2 28.1 mmol/L (20.0-31.0); Calcium 9.4 mg/dL (8.3-10.6); Chloride 104 mmol/L (98-107); Glucose 78 mg/dL (74-106); Potassium 3.7 mmol/L (3.5-5.1); Sodium 141 mmol/L (136-145); Total Protein 7.0 g/dL (5.7-8.2)
== END 2025-06-26 16:17 | disposition home or self-care (01) ==
LOC: LBO 16:16
PROVIDERS: PCP Nurse Practitioner Family; Visit Provider Nurse Practitioner Family
DX: Z00.00 Encounter for general adult medical examination without abnormal findings (principal)
CPT/HCPCS: 36415; 80053